=== PATIENT | male | born 1940 | race Caucasian/White ===

== ENCOUNTER 2017-07-16 07:44 | Day surgery (SDC) | payer MEDICARE ==
[~2017-07-16] VITALS: Ht 185.4 cm; Wt 102.7 kg
[~2017-07-16 07:44] MED LIST: ATOR40TA49 PO; CARD120T4 PO; CEPH500 PO; DABI150 PO; GLIM1 PO; HYDR-3580 PO; METF-324 PO; PROS5TAB2 PO; TAMS0.4C67 PO
[2017-07-16 07:58] VITALS: BP 141/65; PULSE 69; RESP 20; TEMP 97.8; O2SAT 90
[2017-07-16] MEDS ORDERED: ACET500T13 PO (08:31)
[2017-07-16] MEDS ORDERED: ROSU20 PO (08:31)
[2017-07-16] MEDS ORDERED: GLIM2TAB PO (08:31)
[2017-07-16] MEDS ORDERED: ALBI1INJ2 SQ (08:31)
[2017-07-16] MEDS ORDERED: METF1000 PO (08:31)
[2017-07-16] MEDS ORDERED: GABA100C4 PO (08:31)
[2017-07-16] MEDS ORDERED: DILT1CAP3 (08:31)
[2017-07-16] MEDS ORDERED: TAMS0.4C4 (08:31)
[2017-07-16] MEDS ORDERED: FINA5TAB2 (08:31)
[2017-07-16] MEDS ORDERED: APIX5TAB PO (08:31)
[2017-07-16] MEDS ORDERED: SODIUM CHLORIDE 2 ML FLUSH PRN IV FLUSH (08:45)
[2017-07-16] MEDS ORDERED: SODIUM CHLOR 0.9% 1000 ML IV SCH (08:45)
[2017-07-16] MEDS ORDERED: SODIUM CHLORIDE 2 ML FLUSH BID IV FLUSH SCH (09:00)
[2017-07-16] MEDS ORDERED: LIDOCAINE HCL 1% 20 ML VIAL ONE (09:37)
[2017-07-16] MEDS ORDERED: fentaNYL CITRATE 250 MCG/5 ML AMP ONE (09:51)
[2017-07-16] MEDS ORDERED: MIDAZOLAM HCL 2 MG/2 ML VIAL ONE (09:51)
--- NOTE | 2017-07-16 10:37 | PD.RAD ---
Post Procedure Progress Note Pre Procedure Diagnosis: (1) Mass of right chest wall Post Procedure Diagnosis: (1) Mass of right chest wall Procedure Date: Jul 16, 2017 Supervising Radiologist: Puneet Bray Estimated blood loss: None Anesthesia: Local, Conscious Sedation Plan of Activity Patient to Unit: ROPU Patient Condition: Good Additional Comments: 2 core biopsies taken of the right chest wall mass Full dictated report to follow See PACS Report for procedural detail/treatment Puneet Bray MD Jul 16, 2017 10:36
[2017-07-16 10:50] VITALS: BP 101/53; PULSE 70; RESP 16; TEMP 97.8; O2SAT 92
--- NOTE | 2017-07-16 11:01 | RADRPT ---
EXAM DATE/TIME: 07/16/2017 10:17 [facility] COMPARISON: No previous studies available for comparison. INDICATIONS : Right chest wall mass. SEDATION TIME: 30 minutes BIOPSY SITE: Right chest MEDICATION(S): 1.) 2 mg midazolam (Versed) IV 2.) 150 mcg fentanyl (Sublimaze) IV DEVICE(S): 1.) 18 gauge Temno core biopsy needle MEDICAL HISTORY : Congestive heart failure. Diabetes mellitus type 2. SURGICAL HISTORY : Pacemaker. ENCOUNTER: Initial ACUITY: 1 day PAIN SCORE: 0/10 LOCATION: Bilateral chest A total of two core specimen(s) were obtained and sent to the laboratory for pathologic evaluation. PROCEDURE: 1. CT guided biopsy. 2. Conscious sedation with continuous EKG and oximetry monitoring. 3. EKG and oximetry remained stable throughout the procedure. Prior to the procedure informed consent was obtained. Any appropriate prior imaging studies were rev iewed. Using automated exposure control and adjustment of the mA and/or kV according to patient size, radiat ion dose was kept as low as reasonably achievable to obtain optimal diagnostic quality images. DICOM format image data is available electronically for review and comparison. The site was prepped in a sterile fashion. Full sterile technique was used, including cap, mask, judy rile gloves and gown and a large sterile sheet. Hand hygiene and 2% chlorhexidine and/or betadine/al cohol prep was utilized per protocol for cutaneous antisepsis. The skin and subcutaneous tissues wer e infiltrated with local anesthetic solution. With CT guidance the previously identified target was localized. Biopsy was performed using the presc ribed needle as above. Adequate hemostasis was obtained with compression at the puncture site. Follow-up CT scan reveals no hemorrhage. The patient tolerated the procedure well and there were no complications. The patient was returned to the Radiology Outpatient Unit in stable condition. CONCLUSION: Uncomplicated CT guided biopsy. Puneet Bray MD on July 16, 2017 at 10:59 Board Certified Radiologist. This report was verified electronically.
[2017-07-16 11:05] VITALS: BP 95/55; PULSE 70; RESP 20; O2SAT 93
[2017-07-16 11:35] VITALS: BP 105/53; PULSE 64; RESP 18; O2SAT 96
[2017-07-16 12:05] VITALS: BP 102/55; PULSE 64; RESP 18; O2SAT 92
[2017-07-16 12:35] VITALS: BP 122/55; PULSE 70; RESP 18; O2SAT 95
== END 2017-07-16 13:00 | disposition home or self-care (01) ==
LOC: HRAD 07:44 → HRIP 07:48 → HRAD 13:00
PROVIDERS: ATTEND Internal Medicine
DX: R22.2 Localized swelling, mass and lump, trunk (principal); R07.89 Other chest pain; I50.9 Heart failure, unspecified; E11.9 Type 2 diabetes mellitus without complications; Z95.0 Presence of cardiac pacemaker
CPT/HCPCS: 20206; 77012; 88305; 99152; 99153; J2250; J3010

== ENCOUNTER 2017-07-24 08:43 | Inpatient (IN) | payer MEDICARE ==
[~2017-07-24] VITALS: Ht 185.4 cm; Wt 100.0 kg
[~2017-07-24 08:43] MED LIST changes: +ACET500T13 PO; +ALBI1INJ2 SQ; +APIX5TAB PO; +DILT1CAP3 PO; +FINA5TAB2; +GABA100C4 PO; +GLIM2TAB PO; +METF1000 PO; +ROSU20 PO; +TAMS0.4C4
[2017-07-24 08:53] VITALS: BP 120/63; PULSE 73; RESP 19; TEMP 98.1; O2SAT 95
[2017-07-24 09:09] VITALS: BP 142/69; PULSE 69; RESP 19; O2SAT 96
[2017-07-24] MEDS ORDERED: HYDR-4107 PO (09:19)
--- NOTE | 2017-07-24 09:30 | PD ---
HPI Chief Complaint: Dizziness Time Seen by Provider: 09:14 Travel History International Travel<30 days: No Contact w/Intl Traveler<30days: No Traveled to known affect area: No History of Present Illness HPI 77-year-old male complains of headache, dizziness. Patient states that the symptoms started this morning. Patient states the headache diffuse over the head. Patient states that he had transient blurred vision for short time this morning however that cleared up completely. Patient also complained of transient weakness of lower extremity for a short time, and that cleared up completely. Patient denies any neck pain. Patient denies any chest pain or shortness of breath. Patient denies abdominal pain. Patient denies any nausea vomiting diarrhea. Patient denies any fever chills. Patient denies any recent head injury. Patient has history of atrial fibrillation, on Eliquis. Patient was off Eliquis 4 days last week for a chest wall biopsy procedure. Patient also has history hypertension, diabetes, hyperlipidemia. Patient is a non- smoker. Patient status post CVA in 2013. Patient has AICD placement. PFSH Past Medical History Arthritis: No Asthma: No Atrial Fibrillation: Yes Blood Disorders: No Anxiety: No Depression: No Heart Rhythm Problems: Yes Cancer: No Cardiovascular Problems: Yes (A-FIB, CHF, pacer,) High Cholesterol: Yes Chemotherapy: No Chest Pain: No Congestive Heart Failure: Yes COPD: No Cerebrovascular Accident: Yes Diabetes: Yes (DM II) Patient Takes Glucophage: Yes Diminished Hearing: No Endocrine: Yes GERD: No Glaucoma: No Genitourinary: Yes (BPH) Headaches: No Hepatitis: No Hiatal Hernia: No Hypertension: Yes Immune Disorder: No Implanted Vascular Access Dvce: Yes Kidney Stones: No Musculoskeletal: Yes (ARTHRITIS, BACK PROBLEMS) Neurologic: Yes (CVA 2013, no residual) Psychiatric: No Reproductive: No Respiratory: No Integumentary: No Immunizations Current: Yes Migraines: No Myocardial Infarction: No Radiation Therapy: No Renal Failure: No Seizures: No Sickle Cell Disease: No Thyroid Disease: No Ulcer: No Tetanus Vaccination: Unknown Influenza Vaccination: Yes Past Surgical History Abdominal Surgery: No AICD: No Appendectomy: No Cardiac Surgery: Yes (STENT,PACEMAKER, a-fib ablation) Cholecystectomy: No Ear Surgery: No Endocrine Surgery: No Eye Surgery: Yes (R CATARACT) Genitourinary Surgery: No Gynecologic Surgery: No Joint Replacement: Yes (BILATERAL KNEE REPLACEMENTS) Oral Surgery: Yes (TONSILLECTOMY) Pacemaker: Yes (NOVEMBER 2012) Thoracic Surgery: Yes (BUILT IT UP AGAINST THE CHEST WALL 1970 r/t spontaneous pneumothorax x 3 ) Other Surgery: Yes (BILATERAL TOTAL KNEE REPLACEMENT) Social History Alcohol Use: No Tobacco Use: No Substance Use: No Allergies-Medications (Allergen,Severity, Reaction): Coded Allergies: MRI PRECAUTION (Verified Adverse Reaction, Severe, NON REVO PACEMAKER 11/20 LRS, 07/24/17) Reported Meds & Prescriptions Reported Meds & Active Scripts Active Reported Hydrocodone-Acetaminophen 5-300 Mg Tab 1 Tab PO Q12HR PRN Tanzeum 4-Pack Inj (Albiglutide) 50 Mg Pfpen 50 Mg SQ Q7D Gabapentin 100 Mg Cap 1,000 Mg PO BID APAP Extra Strength (Acetaminophen) 500 Mg Tab 500 Mg PO Q4-6H PRN Glimepiride 2 Mg Tab 2 Mg PO BIDAC Metformin (Metformin HCl) 1,000 Mg Tab 1,000 Mg PO BIDPC Tamsulosin (Tamsulosin HCl) 0.4 Mg Cap 0.4 Mg HS Finasteride 5 Mg Tab 5 Mg DAILY Do not crush. Crestor (Rosuvastatin Calcium) 20 Mg Tab 20 Mg PO DAILY Eliquis (Apixaban) 5 Mg Tab 5 Mg PO BID Diltiazem 24Hr ER (Diltiazem HCl) 180 Mg Cap.sa.24h Review of Systems General / Constitutional: No: Fever Eyes: No: Visual changes HENT: Positive: Headaches, Lightheadedness Cardiovascular: No: Chest Pain or Discomfort Respiratory: No: Shortness of Breath Gastrointestinal: No: Abdominal Pain Genitourinary: No: Dysuria Musculoskeletal: No: Pain Skin: No Rash Neurologic: No: Weakness Psychiatric: No: Depression Endocrine: No: Polydipsia Hematologic/Lymphatic: No: Easy Bruising Physical Exam Narrative GENERAL: Well-nourished, well-developed patient. SKIN: Focused skin assessment warm/dry. HEAD: Normocephalic. EYES: No scleral icterus. No injection or drainage. Pupils pinpoint bilaterally. NECK: Supple, trachea midline. No JVD or lymphadenopathy. CARDIOVASCULAR: Regular rate and rhythm without murmurs, gallops, or rubs. RESPIRATORY: Breath sounds equal bilaterally. No accessory muscle use. GASTROINTESTINAL: Abdomen soft, non-tender, nondistended. MUSCULOSKELETAL: No cyanosis, or edema. BACK: Nontender without obvious deformity. No CVA tenderness. Neurologic exam: Patient awake alert oriented 3. No obvious focal deficit. Data Data Last Documented VS Vital Signs Date Time Temp Pulse Resp B/P (MAP) Pulse Ox O2 Delivery O2 Flow Rate FiO2 07/24/17 09:11 69 19 96 Room Air 07/24/17 09:09 142/69 (93) 07/24/17 08:53 98.1 Orders Orders Electrocardiogram (07/24/17 09:23) Complete Blood Count With Diff (07/24/17 09:23) Comprehensive Metabolic Panel (07/24/17 09:23) Prothrombin Time / Inr (Pt) (07/24/17 09:23) Act Partial Throm Time (Ptt) (07/24/17 09:23) Urinalysis - C+S If Indicated (07/24/17 09:23) Thyroid Stimulating Hormone (07/24/17 09:23) Chest, Single Ap (07/24/17 09:23) Ct Brain W/O Iv Contrast(Rout) (07/24/17 09:23) Iv Access Insert/Monitor (07/24/17 09:23) Ecg Monitoring (07/24/17 09:23) Oximetry (07/24/17 09:23) Cta Brain W Iv Contrast W 3d (07/24/17 ) Cta Neck W Iv Contrast W 3d (07/24/17 ) Aspirin (Aspirin) (07/24/17 12:00) Sodium Chlor 0.9% 1000 Ml Inj (Ns 1000 M (07/24/17 12:00) Labs Laboratory Tests Test 07/24/17 09:30 White Blood Count 9.0 TH/MM3 Red Blood Count 4.63 MIL/MM3 Hemoglobin 14.1 GM/DL Hematocrit 41.7 % Mean Corpuscular Volume 90.1 FL Mean Corpuscular Hemoglobin 30.5 PG Mean Corpuscular Hemoglobin Concent 33.9 % Red Cell Distribution Width 14.2 % Platelet Count 284 TH/MM3 Mean Platelet Volume 7.0 FL Neutrophils (%) (Auto) 72.2 % Lymphocytes (%) (Auto) 15.7 % Monocytes (%) (Auto) 9.3 % Eosinophils (%) (Auto) 1.8 % Basophils (%) (Auto) 1.0 % Neutrophils # (Auto) 6.5 TH/MM3 Lymphocytes # (Auto) 1.4 TH/MM3 Monocytes # (Auto) 0.8 TH/MM3 Eosinophils # (Auto) 0.2 TH/MM3 Basophils # (Auto) 0.1 TH/MM3 CBC Comment DIFF FINAL Differential Comment Prothrombin Time 12.0 SEC Prothromb Time International Ratio 1.2 RATIO Activated Partial Thromboplast Time 30.1 SEC Blood Urea Nitrogen 20 MG/DL Creatinine 0.92 MG/DL Random Glucose 133 MG/DL Total Protein 7.5 GM/DL Albumin 3.7 GM/DL Calcium Level 9.5 MG/DL Alkaline Phosphatase 70 U/L Aspartate Amino Transf (AST/SGOT) 21 U/L Alanine Aminotransferase (ALT/SGPT) 26 U/L Total Bilirubin 0.4 MG/DL Sodium Level 136 MEQ/L Potassium Level 4.5 MEQ/L Chloride Level 101 MEQ/L Carbon Dioxide Level 28.1 MEQ/L Anion Gap 7 MEQ/L Estimat Glomerular Filtration Rate 79 ML/MIN Thyroid Stimulating Hormone 3rd Gen 1.870 uIU/ML MDM Medical Decision Making Medical Screen Exam Complete: Yes Emergency Medical Condition: Yes Interpretation(s) 11:18 AM. Last Impressions Head CT 07/24/17922 Signed Impressions: Service Date/Time: Monday, July 24, 2017 09:53 - CONCLUSION: 1. Prominent right parietal infarct with probable chronic and acute components. MRI may be warranted. 2. No midline shift or mass effect. Kennedy Galvan MD Chest X-Ray 07/24/17922 Signed Impressions: Service Date/Time: Monday, July 24, 2017 09:30 - CONCLUSION: 1. Cardiomegaly and minimal left basilar density and probable tiny pleural effusion. 2. Right lung is clear. Kennedy Galvan MD 11:20 AM. CBC within normal limits. BUN 20. INR 1.2. Differential Diagnosis Differential diagnosis including migraine headache, tension headache, cluster headache, intracranial hemorrhage, TIA, CVA Narrative Course 77-year-old male with headache and dizziness. Aspirin 325 mg p.o. given. Normal saline solution 100 cc an hour. O2 2 L nasal cannula. Head of bed at 30 . Spoke with neurologist ,Dr. Rudolph. Advise observation, aspirin, MRA of the brain and carotid. Diagnosis Primary Impression: TIA (transient ischemic attack) Qualified Codes: G45.9 - Transient cerebral ischemic attack, unspecified Additional Impression: Cephalgia Qualified Codes: R51 - Headache Admitting Information Admitting Physician Requests: Observation Ralph Luu MD Jul 24, 2017 09:30
[2017-07-24 09:50] LABS: AUTOMATED NEUTROPHIL # 6.5 TH/MM3 (1.8-7.7); BASOPHIL # 0.1 TH/MM3 (0-0.2); EOSINOPHIL # 0.2 TH/MM3 (0-0.4); EOSINOPHIL % 1.8 % (0.0-4.0); HEMATOCRIT 41.7 % (39.0-51.0); HEMOGLOBIN 14.1 GM/DL (13.0-17.0); LYMPH % 15.7 % (9.0-44.0); LYMPHOCYTE # 1.4 TH/MM3 (1.0-4.8); MEAN CELL VOLUME 90.1 FL (80.0-100.0); MEAN CORPUSCULAR HEMOGLOBIN 30.5 PG (27.0-34.0); MEAN CORPUSCULAR HGB CONC 33.9 % (32.0-36.0); MONO % 9.3 % (0.0-8.0); MONOCYTE # 0.8 TH/MM3 (0-0.9); NEUT % 72.2 % (16.0-70.0); PLATELET COUNT 284 TH/MM3 (150-450); RED BLOOD COUNT 4.63 MIL/MM3 (4.50-5.90); RED CELL DISTRIBUTION WIDTH 14.2 % (11.6-17.2)
[2017-07-24 09:58] LABS: INTERNATIONAL NORMALIZED RATIO 1.2 RATIO
--- NOTE | 2017-07-24 09:59 | RADRPT ---
EXAM DATE/TIME: 07/24/2017 09:30 [facility] COMPARISON: CHEST SINGLE AP, January 05, 2014, 11:29. INDICATIONS : Short of breath, lower extremity weakness today, shaking MEDICAL HISTORY : Diabetes mellitus type II. Congestive heart failure. SURGICAL HISTORY : Pacemaker. ENCOUNTER: Initial ACUITY: 1 day PAIN SCORE: 0/10 LOCATION: Bilateral chest FINDINGS: A single view of the chest demonstrates minimal left basilar density and tiny left pleural effusion. Diminished lung volumes. Cardiomegaly with left-sided pacemaker. Osseous structures are intact. CONCLUSION: 1. Cardiomegaly and minimal left basilar density and probable tiny pleural effusion. 2. Right lung is clear. Kennedy Galvan MD on July 24, 2017 at 9:57 Board Certified Radiologist. This report was verified electronically.
[2017-07-24 10:00] LABS: ALBUMIN 3.7 GM/DL (3.4-5.0); AST (GOT) 21 U/L (15-37); BICARBONATE 28.1 MEQ/L (21.0-32.0); BLOOD UREA NITROGEN 20 MG/DL (7-18); CALCIUM 9.5 MG/DL (8.5-10.1); CHLORIDE 101 MEQ/L (98-107); CREATININE 0.92 MG/DL (0.60-1.30); GLOMERULAR FILTRATION RATE 79 ML/MIN (>89); GLUCOSE,RANDOM 133 MG/DL (74-106); SODIUM (NA) 136 MEQ/L (136-145)
[2017-07-24 10:01] LABS: ALT (GPT) 26 U/L (12-78)
--- NOTE | 2017-07-24 10:09 | RADRPT ---
EXAM DATE/TIME: 07/24/2017 09:53 [facility] COMPARISON: CT BRAIN W/O CONTRAST, November 21, 2013, 10:29. INDICATIONS : Dizziness and cephalgia. RADIATION DOSE: 42.35 CTDIvol (mGy) MEDICAL HISTORY : Cerebrovascular disease. Hypertension. Cardiovascular disease SURGICAL HISTORY : Pacemaker. ENCOUNTER: Initial ACUITY: 1 day PAIN SCALE: 3/10 LOCATION: Bilateral cranial TECHNIQUE: Multiple contiguous axial images were obtained of the head. Using automated exposure control and adj ustment of the mA and/or kV according to patient size, radiation dose was kept as low as reasonably a chievable to obtain optimal diagnostic quality images. DICOM format image data is available electro nically for review and comparison. FINDINGS: CEREBRUM: Prominent right parietal infarct which is predominantly old although acute component cannot be exclud ed. The ventricles are normal for age. No evidence of midline shift, mass lesion, hemorrhage. No ex tra-axial fluid collections are seen. POSTERIOR FOSSA: The cerebellum and brainstem are intact. The 4th ventricle is midline. The cerebellopontine angle i s unremarkable. EXTRACRANIAL: The visualized portion of the orbits is intact. SKULL: The calvaria is intact. No evidence of skull fracture. CONCLUSION: 1. Prominent right parietal infarct with probable chronic and acute components. MRI may be warranted. 2. No midline shift or mass effect. Kennedy Galvan MD on July 24, 2017 at 10:05 Board Certified Radiologist. This report was verified electronically.
[2017-07-24 10:10] LABS: ALKALINE PHOSPHATASE 70 U/L (45-117); TOTAL BILIRUBIN ADULT 0.4 MG/DL (0.2-1.0); TOTAL PROTEIN 7.5 GM/DL (6.4-8.2)
[2017-07-24 11:30] VITALS: BP 118/67; PULSE 68; RESP 16; O2SAT 97
[2017-07-24] MEDS ORDERED: ACETAMINOPHEN 325 MG TAB PO ONE (12:00)
[2017-07-24] MEDS ORDERED: ASPIRIN 325 MG TAB PO ONE (12:00)
[2017-07-24] MEDS: SODIUM CHLOR 0.9% 1000 ML INJ 1,000 ML IV SCH ×2 (12:08→17:00)
[2017-07-24] MEDS ORDERED: ACETAMINOPHEN 325 MG TAB PO PRN (12:30)
[2017-07-24] MEDS ORDERED: ONDANSETRON HCL 4 MG/2 ML VIAL IVP PRN (12:30)
[2017-07-24] MEDS ORDERED: MAGNESIUM HYDROXIDE SUSP 30 ML CUP PO PRN (12:30)
[2017-07-24] MEDS ORDERED: NALOXONE HCL 0.4 MG/ML AMP IV PUSH PRN (12:30)
[2017-07-24] MEDS ORDERED: SODIUM CHLORIDE 0.9% FLUSH 10 ML FLUSH IV FLUSH PRN (12:30)
[2017-07-24] MEDS ORDERED: DEXTROSE 50% IN WATER 50 ML VIAL(D50) IV PUSH PRN (12:45)
[2017-07-24] MEDS ORDERED: GLUCAGON 1 MG/ML VIAL OTHER PRN (12:45)
[2017-07-24] MEDS ORDERED: ENALAPRILAT 1.25 MG/ML VIAL IV PUSH PRN (12:45)
[2017-07-24] MEDS ORDERED: IOHEXOL 350 MG/ML 10 ML VIAL (for RAD DIAG) IVCONTRAST ONE (12:49)
--- NOTE | 2017-07-24 12:49 | HHI.HP ---
HPI Service [facility] Hospitalists Primary Care Physician Samuel St MD Admission Diagnosis Transient neurological deficit Chief Complaint: Headache, LUE weakness Travel History International Travel<30 Days: No Contact w/Intl Traveler <30 Da: No Traveled to Known Affected Are: No History of Present Illness Mr. Cabrera is a 77 y/o WM with Hx of CVA in 2013, carotid stenosis, hypertension, diabetes mellitus, atrial fibrillation, and peripheral vascular disease who presented to the ED on 07/24/17 with complaints of headache and transient left sided weakness. Pt normally takes Eliquis BID for his hx of atrial fibrillation. This was held for a chest wall biopsy he had on 07/16 but was resumed after biopsy. Pt reports that this morning he developed a global headache that seemed to be worse with coughing. He also noted that he felt a little weak in his left arm and had some transient blurred vision. The weakness and blurred vision resolved on its own. He denies any associated photophobia. fever/chills, night sweats, recent head injury. Pt had a head CT in the ED which noted prominent right parietal infarct with probable chronic and acute components. Pt is being admitted for Neurology consultation and further workup. Review of Systems Constitutional: DENIES: Fever, Chills Eyes: COMPLAINS OF: Blurred vision, DENIES: Vision loss Ears, nose, mouth, throat: DENIES: Hearing loss, Nasal discharge, Hoarseness, Running Nose, Epistaxis, Sinus Pain Respiratory: COMPLAINS OF: Cough, DENIES: Shortness of breath Cardiovascular: DENIES: Chest pain, Palpitations, Lower Extremity Edema Gastrointestinal: DENIES: Abdominal pain, Constipation, Diarrhea, Nausea, Vomiting Genitourinary: DENIES: Hematuria, Dysuria Musculoskeletal: DENIES: Back pain, Neck pain Integumentary: DENIES: Rash Neurologic: COMPLAINS OF: Headache, Localized weakness, DENIES: Abnormal gait, Seizures, Speech Problems, Tremor, Poor Balance Psychiatric: DENIES: Confusion Past Family Social History Past Medical History Hx of CVA in 2013 Carotid stenosis (L>R) Hypertension Diabetes, hemoglobin A1c was 8.0 on 06/22/17 Atrial fibrillation Peripheral vascular disease, status post lower extremity revascularization procedure Summer 2012 CHF, status post permanent pacemaker Hyperlipidemia History of lower extremity DVT BPH Chronic low back pain Obesity History of left eye posterior vitreous detachment PVCs Hx of biliary strictures, status post ERCP with sphincterotomy Hx of nephrolithiasis Remote history of recurrent left pneumothorax x3 with thoracotomy and repair 2D echo (10/16/16): - Estimated EF 45-50% - Mild LA enlargement - Mild LVH - Mild aortic sclerosis - Mild mitral regurg - Mild tricuspid regurg - PA pressure 47mmHg Past Surgical History Chest wall biopsy on 07/16/17 Thoracotomy and repair ERCP with sphincterotomy Knee replacement Corneal surgery Lower extremity revascularization summer 2012 Reported Medications -Hydrocodone-Acetaminophen 5-300 Mg Tab 1 Tab PO Q12HR PRN -Tanzeum 4-Pack Inj 50 Mg SQ Q7D -Gabapentin 100 Mg Cap 1,000 Mg PO BID (?300mg-600mg po HS) -APAP Extra Strength (Acetaminophen) 500 Mg Tab 500 Mg PO Q4-6H PRN -Glimepiride 2 Mg PO BIDAC -Metformin 1,000 Mg PO BIDPC -Tamsulosin 0.4 Mg HS -Finasteride 5 Mg DAILY -Crestor 20 Mg PO DAILY -Eliquis 5 Mg PO BID -Diltiazem 24Hr ER 180 Mg PO DAILY Allergies: Coded Allergies: MRI PRECAUTION (Verified Adverse Reaction, Severe, NON REVO PACEMAKER 11/20 LRS, 07/24/17) Family History Noncontributory Social History Pt is He is retired Former smoker, patient has smoked 2 packs per day for most of his adult life No alcohol use No illicit Street drugs Physical Exam Vital Signs Vital Signs Date Time Temp Pulse Resp B/P (MAP) Pulse Ox O2 Delivery O2 Flow Rate FiO2 07/24/17 09:11 69 19 96 Room Air 07/24/17 09:09 69 19 142/69 (93) 96 Room Air 07/24/17 09:09 69 19 142/69 (93) 96 Room Air 07/24/17 08:53 98.1 73 19 120/63 (82) 95 Physical Exam GENERAL: This is a well-nourished, well-developed patient, in no apparent distress. HEENT: Atraumatic. Normocephalic. No temporal or scalp tenderness. No scleral icterus. Airway patent. NECK: Trachea midline, supple, nontender. CARDIO: Regular. RESP: CTA bilaterally. No wheezes, rales, or rhonchi. ABD: +BS, soft, non-tender, nondistended. EXT: Extremities without clubbing, cyanosis, or edema. NEURO: Awake and alert. Motor and sensory grossly within normal limits. Normal speech. Laboratory Laboratory Tests Test 07/24/17 09:30 White Blood Count 9.0 Red Blood Count 4.63 Hemoglobin 14.1 Hematocrit 41.7 Mean Corpuscular Volume 90.1 Mean Corpuscular Hemoglobin 30.5 Mean Corpuscular Hemoglobin Concent 33.9 Red Cell Distribution Width 14.2 Platelet Count 284 Mean Platelet Volume 7.0 Neutrophils (%) (Auto) 72.2 Lymphocytes (%) (Auto) 15.7 Monocytes (%) (Auto) 9.3 Eosinophils (%) (Auto) 1.8 Basophils (%) (Auto) 1.0 Neutrophils # (Auto) 6.5 Lymphocytes # (Auto) 1.4 Monocytes # (Auto) 0.8 Eosinophils # (Auto) 0.2 Basophils # (Auto) 0.1 CBC Comment DIFF FINAL Differential Comment Prothrombin Time 12.0 Prothromb Time International Ratio 1.2 Activated Partial Thromboplast Time 30.1 Blood Urea Nitrogen 20 Creatinine 0.92 Random Glucose 133 Total Protein 7.5 Albumin 3.7 Calcium Level 9.5 Alkaline Phosphatase 70 Aspartate Amino Transf (AST/SGOT) 21 Alanine Aminotransferase (ALT/SGPT) 26 Total Bilirubin 0.4 Sodium Level 136 Potassium Level 4.5 Chloride Level 101 Carbon Dioxide Level 28.1 Anion Gap 7 Estimat Glomerular Filtration Rate 79 Thyroid Stimulating Hormone 3rd Gen 1.870 Result Diagram: 07/24/1792907/24/17929 Imaging Last Impressions Head CT 07/24/17922 Signed Impressions: Service Date/Time: Monday, July 24, 2017 09:53 - CONCLUSION: 1. Prominent right parietal infarct with probable chronic and acute components. MRI may be warranted. 2. No midline shift or mass effect. Kennedy Galvan MD Chest X-Ray 07/24/17922 Signed Impressions: Service Date/Time: Monday, July 24, 2017 09:30 - CONCLUSION: 1. Cardiomegaly and minimal left basilar density and probable tiny pleural effusion. 2. Right lung is clear. Kennedy Galvan MD Caprini VTE Risk Assessment Caprini VTE Risk Assessment: Mod/High Risk (score >= 2) Caprini Risk Assessment Model Point Value = 1 Point Value = 2 Point Value = 3 Point Value = 5 Age 41-60 Minor surgery BMI > 25 kg/m2 Swollen legs Varicose veins or History of unexplained or recurrent spontaneous Oral contraceptives or hormone replacement Sepsis (< 1 month) Serious lung disease, including pneumonia (< 1 month) Abnormal pulmonary function Acute myocardial infarction Congestive heart failure (< 1 month) History of inflammatory bowel disease Medical patient at bed rest Age 61-74 Arthroscopic surgery Major open surgery (> 45 min) Laparoscopic surgery (> 45 min) Malignancy Confined to bed (> 72 hours) Immobilizing plaster cast Central venous access Age >= 75 History of VTE Family history of VTE Factor V Leiden Prothrombin [id number] Lupus anticoagulant Anticardiolipin antibodies Elevated serum homocysteine Heparin-induced thrombocytopenia Other congenital or acquired thrombophilia Stroke (< 1 month) Elective arthroplasty Hip, pelvis, or leg fracture Acute spinal cord injury (< 1 month) Prophylaxis Regimen Total Risk Factor Score Risk Level Prophylaxis Regimen 0-1 Low Early ambulation 2 Moderate Order ONE of the following: *Sequential Compression Device (SCD) *Heparin 5000 units SQ BID 3-4 Higher Order ONE of the following medications: *Heparin 5000 units SQ TID *Enoxaparin/Lovenox 40 mg SQ daily (WT < 150 kg, CrCl > 30 mL/min) *Enoxaparin/Lovenox 30 mg SQ daily (WT < 150 kg, CrCl > 10-29 mL/min) *Enoxaparin/Lovenox 30 mg SQ BID (WT < 150 kg, CrCl > 30 mL/min) AND/OR *Sequential Compression Device (SCD) 5 or more Highest Order ONE of the following medications: *Heparin 5000 units SQ TID (Preferred with Epidurals) *Enoxaparin/Lovenox 40 mg SQ daily (WT < 150 kg, CrCl > 30 mL/min) *Enoxaparin/Lovenox 30 mg SQ daily (WT < 150 kg, CrCl > 10-29 mL/min) *Enoxaparin/Lovenox 30 mg SQ BID (WT < 150 kg, CrCl > 30 mL/min) AND *Sequential Compression Device (SCD) Assessment and Plan Problem List: (1) Head ache ICD Codes: R51 - Head ache Status: Acute Plan: - Patient is a 77 y/o WM with Hx of CVA in 2013, carotid stenosis, hypertension , diabetes mellitus, atrial fibrillation, and peripheral vascular disease who presented to the ED on 07/24/17 with complaints of headache and transient left sided weakness. - Pt reports that this morning he developed a global headache that seemed to be worse with coughing. He also noted that he felt a little weak in his left arm and had some transient blurred vision. The weakness and blurred vision resolved on its own. - Head CT in the ED which noted prominent right parietal infarct with probable chronic and acute components. - Neurology consulted. - [facility] Day to possible be a cough induced MEDRANO - CTA brain and Carotids are ordered - Check b12, tsh, folate - 2D echo - FLP (2) TIA (transient ischemic attack) ICD Codes: G45.9 - TIA (transient ischemic attack) Status: Acute Plan: - See above - Neurology consulted - Recommending adding aspirin 81 mg daily to Plavix - ekg monitor (3) Afib ICD Codes: I48.91 - Afib Status: Chronic Plan: - Home meds continued - ekg monitor (4) DM (diabetes mellitus), type 2, uncontrolled ICD Codes: E11.65 - DM (diabetes mellitus), type 2, uncontrolled Status: Chronic Plan: - Hemoglobin A1c 7.8 - NovoLog SSI - Accu checks (5) Cardiomyopathy ICD Codes: I42.9 - Cardiomyopathy, unspecified Status: Chronic (6) Wide QRS ventricular tachycardia ICD Codes: I47.2 - Ventricular tachycardia Status: Acute (7) History of cardiac pacemaker ICD Codes: Z95.0 - Presence of cardiac pacemaker Status: Chronic Assessment and Plan Patient examined. Assessment and plan formulated with Sulma Marcus PA-C. I agree with the above. Physician Certification 2 Midnight Certification Type: Admission for Inpatient Services Order for Inpatient Services The services are ordered in accordance with Medicare regulations or non- Medicare payer requirements, as applicable. In the case of services not specified as inpatient-only, they are appropriately provided as inpatient services in accordance with the 2-midnight benchmark. Estimated LOS (days): 3 3 days is the estimated time the patient will need to remain in the hospital, assuming treatment plan goals are met and no additional complications. Post-Hospital Plan: Not yet determined Problem Qualifiers (1) TIA (transient ischemic attack): Qualified Codes: G45.9 - Transient cerebral ischemic attack, unspecified Sulma Marcus Jul 24, 2017 12:49 Magdy Mauricio DO Jul 30, 2017 11:04
--- NOTE | 2017-07-24 13:17 | RADRPT ---
EXAM DATE/TIME: 07/24/2017 12:32 [facility] COMPARISON: No previous studies available for comparison. INDICATIONS : Dizziness and headache since this morning. IV CONTRAST: 73 cc Omnipaque 350 (iohexol) IV ; Cumulative dose for multiple exams. RADIATION DOSE: 27.94 CTDIvol (mGy) ; Combined studies - Thorax/Abdomen/Pelvis MEDICAL HISTORY : Cardiovascular disease. Cerebrovascular disease. Hypertension.Diabetes SURGICAL HISTORY : None. ENCOUNTER: Initial ACUITY: 1 day PAIN SCALE: 5/10 LOCATION: cranial TECHNIQUE: Volumetric scanning was performed using a multi-row detector CT scanner. The data was post processed with a variety of visualization algorithms including full volume maximum intensity projection, multi -planar sliding thin slab reformation, curved planar reformation, and surface rendering techniques. Using automated exposure control and adjustment of the mA and/or kV according to patient size, radiat ion dose was kept as low as reasonably achievable to obtain optimal diagnostic quality images. DICO M format image data is available electronically for review and comparison. FINDINGS: There is excellent visualization of the major intracranial arteries out to the second-order branch ve ssels. There is no evidence for aneurysm, vessel truncation or stenosis, and no evidence for vascula r malformation. CONCLUSION: Normal examination. Wilman Boudreaux MD on July 24, 2017 at 13:15 Board Certified Radiologist. This report was verified electronically.
--- NOTE | 2017-07-24 13:20 | RADRPT ---
EXAM DATE/TIME: 07/24/2017 12:32 [facility] COMPARISON: No previous studies available for comparison. INDICATIONS : Dizziness and headache since this morning. IV CONTRAST: 73 cc Omnipaque 350 (iohexol) IV ; Cumulative dose for multiple exams. RADIATION DOSE: 27.94 CTDIvol (mGy) ; Combined studies MEDICAL HISTORY : Cardiovascular disease. Cerebrovascular disease. Hypertension.Diabetes. SURGICAL HISTORY : None. ENCOUNTER: Initial ACUITY: 1 day PAIN SCALE: 5/10 LOCATION: neck Elevated flow velocities and ICA/CCA ratios have been found to correlate with increased degrees of vessel stenosis, calculated as percentage of diameter relative to a normal segment of distal ICA/CCA. TECHNIQUE: Volumetric scanning was performed using a multirow detector CT scanner. The data was post processed with a variety of visualization algorithms including full-volume maximum intensity projection, multip lanar sliding thin-slab reformation, curved-planar reformation, and surface-rendering techniques. Us ing automated exposure control and adjustment of the mA and/or kV according to patient size, radiatio n dose was kept as low as reasonably achievable to obtain optimal diagnostic quality images. DICOM f ormat image data is available electronically for review and comparison. FINDINGS: AORTIC ARCH: There is a three-vessel origin of the great vessels from the aorta. No evidence of ostial narrowing. RIGHT CAROTID: There is mild eccentric calcific plaque involving the right internal carotid artery origin with minim al associated luminal narrowing estimated at perhaps 20%. Beyond this proximal disease, the vessel is normal in appearance and widely patent to the skull base. LEFT CAROTID: There is moderate eccentric soft and calcific plaquing at the carotid bulb and left ICA origin with a pproximately 40% stenotic narrowing. VERTEBRALS: The vertebral arteries are patent bilaterally, left side dominant.. No stenotic lesions are seen. CONCLUSION: Slight bilateral carotid bifurcation stenosis, worse on the left than the right. No significant flow- limiting stenosis Wilman Boudreaux MD on July 24, 2017 at 13:16 Board Certified Radiologist. This report was verified electronically.
[2017-07-24 14:27] LABS: FREE T4 1.11 NG/DL (0.76-1.46)
[2017-07-24 14:30] LABS: FOLATE GREATER THAN 20.0 NG/ML (3.1-17.5)
--- NOTE | 2017-07-24 15:05 | PD.CONS ---
History of Present Illness Service Neurology Consult Requested By er Reason for Consult tia Primary Care Physician Samuel St MD History of Present Illness 77 y/o m presents to er for evaluation of headache and transient left sided weakness. on eliquis bid. has been on it since last sunday, after biopsy. today felt alittle weak in his left arm, was having a headache worse when he coughs. no photo/phonophobia. no fever, night sweats or chills. no blood production, no clear fluid drainage. feels better at present. no swan, no focal weakness. has been under some stress thinking about the results of his recent biopsy. ct brain shows old rt o-p stroke no ich. glucose 133. cbc nml. given ivf and aspirin in er. 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 Past Surgical History Chest wall biopsy on 07/16/17 Thoracotomy and repair ERCP with sphincterotomy Knee replacement Corneal surgery Lower extremity revascularization summer 2012 Allergies: Coded Allergies: MRI PRECAUTION (Verified Adverse Reaction, Severe, NON REVO PACEMAKER 11/20 LRS, 07/24/17) Family History Noncontributory Social History Pt is quit tob use No alcohol use No illicit Street drugs Review of Systems All other ROS: ROS reviewed as documented in chart Past Family Social History Allergies: Coded Allergies: MRI PRECAUTION (Verified Adverse Reaction, Severe, NON REVO PACEMAKER 11/20 LRS, 07/24/17) Active Ordered Medications Current Medications Medications (Trade) Dose Ordered Sig/Conchita Route Start Time Stop Time Status Last Admin Sodium Chloride 1,000 ml @ 100 mls/hr Q10H IV 07/24/17 12:00 07/24/17 12:08 (NS Flush) 2 ml UNSCH PRN IV FLUSH 07/24/17 12:30 (NS Flush) 2 ml BID IV FLUSH 07/24/17 21:00 (Tylenol) 650 mg Q4H PRN PO 07/24/17 12:30 (Zofran Inj) 4 mg Q6H PRN IVP 07/24/17 12:30 (Narcan Inj) 0.4 mg UNSCH PRN IV PUSH 07/24/17 12:30 (Milk Of Magnesia Liq) 30 ml Q12H PRN PO 07/24/17 12:30 (Vasotec Inj) 1.25 mg Q4H PRN IV PUSH 07/24/17 12:45 (Aspirin) 325 mg DAILY PO 07/25/17 09:00 (NovoLOG SUPPLEMENTAL SCALE) 1 ACHS SLIDING SCALE SQ 07/24/17 17:00 (D50w (Vial) Inj) 50 ml UNSCH PRN IV PUSH 07/24/17 12:45 (Glucagon Inj) 1 mg UNSCH PRN OTHER 07/24/17 12:45 (Eliquis) 5 mg BID PO 07/24/17 21:00 (Glucophage) 1,000 mg BIDPC PO 07/26/17 18:00 (Flomax) 0.4 mg HS PO 07/24/17 21:00 (Lipitor) 40 mg DAILY PO 07/24/17 12:45 (Cardizem Cd) 180 mg DAILY PO 07/25/17 09:00 Exam I&O / VS Vital Signs Date Time Temp Pulse Resp B/P (MAP) Pulse Ox O2 Delivery O2 Flow Rate FiO2 07/24/17 11:30 68 16 118/67 (84) 97 Room Air 07/24/17 09:11 69 19 96 Room Air 07/24/17 09:09 69 19 142/69 (93) 96 Room Air 07/24/17 09:09 69 19 142/69 (93) 96 Room Air 07/24/17 08:53 98.1 73 19 120/63 (82) 95 General: Alert and Oriented, No acute distress Eye: PERRL, EOMI, Other Respiratory: Lungs CTA Cardiology: Normal rate Musculoskeletal: ROM Neurologic: Alert, Oriented, Normal sensory, Normal motor, No focal defects, CN II-XII intact, Gag reflex normal, Normal DTR's Psychiatric: Cooperative, Appropriate mood & affect Exam Comments ox 3, no aphasia, eomi, vff grossly full, minimal reduced left nlf, smile sym, no drift, 5/5 all 4 ext, no clonus, planterflexor Review/Management Diagnosis/Plan: (1) Cephalgia ICD Codes: R51 - Headache Status: Acute Plan: cough induced swan. no mass found on ct brain vitals/exam stable has been under some stress. possible tension/migraine headache. although feels his left arm was alittle weak which would point towards tia b12, tsh, folate nml. cta brain/carotids no significant occlusive disease. 20-40 % stenosis recs ivf check lipids tele/echo would be a little reluctant to change oac at present. add aspirin 81mg po for now d/c planning in am follow exam (2) TIA (transient ischemic attack) ICD Codes: G45.9 - TIA (transient ischemic attack) Status: Acute (3) Chronic ischemic right MCA stroke ICD Codes: I69.30 - Unspecified sequelae of cerebral infarction Status: Chronic (4) Afib ICD Codes: I48.91 - Afib Status: Chronic (5) HTN (hypertension) ICD Codes: I10 - HTN (hypertension) Status: Chronic (6) DM (diabetes mellitus), type 2, uncontrolled ICD Codes: E11.65 - DM (diabetes mellitus), type 2, uncontrolled Status: Chronic Problem Qualifiers (1) Cephalgia: Qualified Codes: R51 - Headache (2) TIA (transient ischemic attack): Qualified Codes: G45.9 - Transient cerebral ischemic attack, unspecified Jean Rudolph MD Jul 24, 2017 15:05
[2017-07-24 16:28] LABS: HEMOGLOBIN A1C 7.8 % (4.3-6.0)
[2017-07-24 16:59] VITALS: BP 136/72; PULSE 73; RESP 20; TEMP 97.9; O2SAT 96
[2017-07-24] MEDS: INSULIN ASPART SUPPLEMENTAL SCALE SQ SCH ×2 (17:00→23:27)
[2017-07-24] MEDS: ATORVASTATIN 40 MG TAB PO SCH (17:01)
[2017-07-24 20:35] VITALS: BP 136/78; PULSE 76; RESP 17; TEMP 98; O2SAT 95
[2017-07-24] MEDS: APIXABAN 5 MG TABLET PO SCH (21:19)
[2017-07-24] MEDS: SODIUM CHLORIDE 0.9% FLUSH 10 ML FLUSH IV FLUSH SCH (21:19)
[2017-07-24] MEDS: TAMSULOSIN HCL 0.4 MG CAP PO SCH (21:19)
--- NOTE | 2017-07-24 21:55 | EKG ---
Date Performed: 07/24/2017 Time Performed: 09:17:17 PTAGE: 77 years EKG: ELECTRONIC VENTRICULAR PACEMAKER ABNORMAL RHYTHM ECG PREVIOUS TRACING : 01/06/2014 05.15 Compared to prior tracing, paced rhythm now present DOCTOR: Zbigniew George Interpretating Date/Time 07/24/2017 21:54:08
[2017-07-24 23:30] VITALS: BP 121/58; PULSE 69; RESP 18; TEMP 98.3; O2SAT 95
[2017-07-25] VITALS (8 sets, daily range): BP systolic 120–154; BP diastolic 62–89; PULSE 69–115; RESP 17–20; TEMP 97.7–97.9; O2SAT 93–95
[2017-07-25] MEDS: INSULIN ASPART SUPPLEMENTAL SCALE SQ SCH ×4 (08:40→20:29)
[2017-07-25] MEDS: SODIUM CHLORIDE 0.9% FLUSH 10 ML FLUSH IV FLUSH SCH ×2 (08:43→20:28)
[2017-07-25] MEDS: SODIUM CHLOR 0.9% 1000 ML INJ 1,000 ML IV SCH ×2 (08:43→17:13)
[2017-07-25] MEDS: ATORVASTATIN 40 MG TAB PO SCH (08:44)
[2017-07-25] MEDS: ASPIRIN 81 MG CHEW TAB PO SCH (08:44)
[2017-07-25] MEDS: APIXABAN 5 MG TABLET PO SCH ×2 (08:45→20:28)
[2017-07-25] MEDS ORDERED: ASPIRIN 325 MG TAB PO SCH (09:00)
[2017-07-25] MEDS ORDERED: DILTIAZEM-CD 180 MG CAP ER PO SCH (09:00)
--- NOTE | 2017-07-25 09:25 | HHI.PR ---
Review/Management Diagnosis/Plan: (1) Cephalgia ICD Codes: R51 - Headache Status: Acute Plan: cough induced swan. no mass found on ct brain vitals/exam stable has been under some stress. possible tension/migraine headache. although feels his left arm was alittle weak which would point towards tia b12, tsh, folate nml. cta brain/carotids no significant occlusive disease. 20-40 % stenosis recs neuro stable; doing well lipids pending echo-pending eliquis + aspirin 81mg d/c planning today from neuro and f/u with us outpatient in 2-3 weeks (2) TIA (transient ischemic attack) ICD Codes: G45.9 - TIA (transient ischemic attack) Status: Acute (3) Chronic ischemic right MCA stroke ICD Codes: I69.30 - Unspecified sequelae of cerebral infarction Status: Chronic (4) Afib ICD Codes: I48.91 - Afib Status: Chronic (5) HTN (hypertension) ICD Codes: I10 - HTN (hypertension) Status: Chronic (6) DM (diabetes mellitus), type 2, uncontrolled ICD Codes: E11.65 - DM (diabetes mellitus), type 2, uncontrolled Status: Chronic Subjective Subjective Comments No acute events reported no dizziness; " can i go home?" No headache No chest pain No dyspnea Active Medications Current Medications Medications (Trade) Dose Ordered Sig/Conchita Route Start Time Stop Time Status Last Admin Sodium Chloride 1,000 ml @ 100 mls/hr Q10H IV 07/24/17 12:00 07/25/17 08:43 (NS Flush) 2 ml UNSCH PRN IV FLUSH 07/24/17 12:30 (NS Flush) 2 ml BID IV FLUSH 07/24/17 21:00 07/24/17 21:19 (Tylenol) 650 mg Q4H PRN PO 07/24/17 12:30 (Zofran Inj) 4 mg Q6H PRN IVP 07/24/17 12:30 (Narcan Inj) 0.4 mg UNSCH PRN IV PUSH 07/24/17 12:30 (Milk Of Magnesia Liq) 30 ml Q12H PRN PO 07/24/17 12:30 (Vasotec Inj) 1.25 mg Q4H PRN IV PUSH 07/24/17 12:45 (NovoLOG SUPPLEMENTAL SCALE) 1 ACHS SLIDING SCALE SQ 07/24/17 17:00 07/24/17 23:27 (D50w (Vial) Inj) 50 ml UNSCH PRN IV PUSH 07/24/17 12:45 (Glucagon Inj) 1 mg UNSCH PRN OTHER 07/24/17 12:45 (Eliquis) 5 mg BID PO 07/24/17 21:00 07/25/17 08:45 (Glucophage) 1,000 mg BIDPC PO 07/26/17 18:00 (Flomax) 0.4 mg HS PO 07/24/17 21:00 07/24/17 21:19 (Lipitor) 40 mg DAILY PO 07/24/17 12:45 07/25/17 08:44 (Cardizem Cd) 180 mg DAILY PO 07/25/17 09:00 07/25/17 08:44 (Aspirin Chew) 81 mg DAILY PO 07/25/17 09:00 07/25/17 08:44 Allergies Allergies Coded Allergies MRI PRECAUTION (Verified Adverse Reaction, Severe, NON REVO PACEMAKER 11/20/13 LRS, 07/24/17) Review of Systems All other ROS: ROS reviewed as documented in chart Exam I&O / VS 07/25/17 07/25/17 07/26/17 15:00 23:00 07:00 # Voids 1 # Bowel Movements 1 Vital Signs Date Time Temp Pulse Resp B/P (MAP) Pulse Ox O2 Delivery O2 Flow Rate FiO2 07/25/17 08:22 97.9 69 20 137/80 (99) 93 07/25/17 05:28 97.8 70 17 120/63 (82) 94 07/25/17 00:37 69 07/24/17 23:30 98.3 69 18 121/58 (79) 95 07/24/17 20:35 98.0 76 17 136/78 (97) 95 07/24/17 16:59 97.9 73 20 136/72 (93) 96 07/24/17 16:23 07/24/17 11:30 68 16 118/67 (84) 97 Room Air General: Alert and Oriented, No acute distress Eye: PERRL, EOMI, Other Respiratory: Lungs CTA Cardiology: Normal rate Musculoskeletal: ROM Neurologic: Alert, Oriented, Normal sensory, Normal motor, No focal defects, CN II-XII intact, Gag reflex normal, Normal DTR's Psychiatric: Cooperative, Appropriate mood & affect Exam Comments ox 3, no aphasia, eomi, vff grossly full, no evangelical tenderness, neck supple, smile sym, no drift, 5/5 all 4 ext, no clonus, planterflexor Objective Micro and Labs Laboratory Tests Test 07/24/17 09:30 07/24/17 13:20 07/25/17 08:45 White Blood Count 9.0 Red Blood Count 4.63 Hemoglobin 14.1 Hematocrit 41.7 Mean Corpuscular Volume 90.1 Mean Corpuscular Hemoglobin 30.5 Mean Corpuscular Hemoglobin Concent 33.9 Red Cell Distribution Width 14.2 Platelet Count 284 Mean Platelet Volume 7.0 Neutrophils (%) (Auto) 72.2 Lymphocytes (%) (Auto) 15.7 Monocytes (%) (Auto) 9.3 Eosinophils (%) (Auto) 1.8 Basophils (%) (Auto) 1.0 Neutrophils # (Auto) 6.5 Lymphocytes # (Auto) 1.4 Monocytes # (Auto) 0.8 Eosinophils # (Auto) 0.2 Basophils # (Auto) 0.1 CBC Comment DIFF FINAL Differential Comment Prothrombin Time 12.0 Prothromb Time International Ratio 1.2 Activated Partial Thromboplast Time 30.1 Blood Urea Nitrogen 20 Creatinine 0.92 Random Glucose 133 Total Protein 7.5 Albumin 3.7 Calcium Level 9.5 Alkaline Phosphatase 70 Aspartate Amino Transf (AST/SGOT) 21 Alanine Aminotransferase (ALT/SGPT) 26 Total Bilirubin 0.4 Sodium Level 136 Potassium Level 4.5 Chloride Level 101 Carbon Dioxide Level 28.1 Anion Gap 7 Estimat Glomerular Filtration Rate 79 Thyroid Stimulating Hormone 3rd Gen 1.870 Hemoglobin A1c 7.8 Ammonia 33 Vitamin B12 Level 473 Folate GREATER THAN 20.0 Free Thyroxine 1.11 Problem Qualifiers (1) Cephalgia: Qualified Codes: R51 - Headache (2) TIA (transient ischemic attack): Qualified Codes: G45.9 - Transient cerebral ischemic attack, unspecified Jean Rudolph MD Jul 25, 2017 09:25
[2017-07-25 09:26] LABS: AUTOMATED NEUTROPHIL # 7.1 TH/MM3 (1.8-7.7); BASOPHIL # 0.1 TH/MM3 (0-0.2); EOSINOPHIL # 0.1 TH/MM3 (0-0.4); EOSINOPHIL % 1.1 % (0.0-4.0); HEMATOCRIT 40.8 % (39.0-51.0); HEMOGLOBIN 13.8 GM/DL (13.0-17.0); LYMPH % 11.7 % (9.0-44.0); LYMPHOCYTE # 1.1 TH/MM3 (1.0-4.8); MEAN CELL VOLUME 90.3 FL (80.0-100.0); MEAN CORPUSCULAR HEMOGLOBIN 30.6 PG (27.0-34.0); MEAN CORPUSCULAR HGB CONC 33.9 % (32.0-36.0); MEAN PLATELET VOLUME 7.2 FL (7.0-11.0); MONO % 8.2 % (0.0-8.0); MONOCYTE # 0.8 TH/MM3 (0-0.9); PLATELET COUNT 290 TH/MM3 (150-450); RED BLOOD COUNT 4.52 MIL/MM3 (4.50-5.90); WHITE BLOOD COUNT 9.1 TH/MM3 (4.0-11.0)
[2017-07-25 09:53] LABS: BICARBONATE 28.3 MEQ/L (21.0-32.0); CALCIUM 9.3 MG/DL (8.5-10.1); CREATININE 0.79 MG/DL (0.60-1.30)
[2017-07-25 09:57] LABS: CHOLESTEROL/ HDL RATIO 2.73 RATIO; HDL CHOLESTEROL 43.2 MG/DL (40.0-60.0)
[2017-07-25] MEDS ORDERED: ASPI81TA23 PO (10:16)
--- NOTE | 2017-07-25 12:33 | HHI.DCPOC ---
Discharge Care Plan Diagnosis: (1) Cephalgia (2) TIA (transient ischemic attack) (3) Afib (4) DM (diabetes mellitus), type 2, uncontrolled (5) HTN (hypertension) Goals to Promote Your Health * To prevent worsening of your condition and complications * To maintain your health at the optimal level Directions to Meet Your Goals Take your medications as prescribed Follow your dietary instruction Follow activity as directed Keep your appointments as scheduled Take your immunizations and boosters as scheduled If your symptoms worsen call your PCP, if no PCP go to Urgent Care Center or Emergency Room Smoking is Dangerous to Your Health. Avoid second hand smoke Call the 24-hour hour crisis hotline for domestic abuse at Chasidy Jim Jul 25, 2017 12:33 Magdy Mauricio DO Jul 30, 2017 11:06
--- NOTE | 2017-07-25 12:38 | HHI.DS ---
Discharge Summary Admission Date Jul 24, 2017 at 12:41 Discharge Date: Jul 26, 2017 Admitting Diagnosis Transient neurological deficit (1) TIA (transient ischemic attack) Diagnosis: Principal ICD Codes: G45.9 - TIA (transient ischemic attack) Status: Acute (2) HTN (hypertension) Diagnosis: Secondary ICD Codes: I10 - HTN (hypertension) Status: Chronic (3) Afib Diagnosis: Secondary ICD Codes: I48.91 - Afib Status: Chronic (4) DM (diabetes mellitus), type 2, uncontrolled Diagnosis: Secondary ICD Codes: E11.65 - DM (diabetes mellitus), type 2, uncontrolled Status: Chronic (5) Chronic ischemic right MCA stroke Diagnosis: Secondary ICD Codes: I69.30 - Unspecified sequelae of cerebral infarction Status: Chronic Consultants Dr. Rudolph, neurology Dr. Rodriguez, Cardiology Procedures none Brief History Mr. Cabrera is a 77 y/o WM with Hx of CVA in 2013, carotid stenosis, hypertension, diabetes mellitus, atrial fibrillation, and peripheral vascular disease who presented to the ED on 07/24/17 with complaints of headache and transient left sided weakness. Pt normally takes Eliquis BID for his hx of atrial fibrillation. This was held for a chest wall biopsy he had on 07/16 but was resumed after biopsy. Pt reports that this morning he developed a global headache that seemed to be worse with coughing. He also noted that he felt a little weak in his left arm and had some transient blurred vision. The weakness and blurred vision resolved on its own. He denies any associated photophobia. fever/chills, night sweats, recent head injury. Pt had a head CT in the ED which noted prominent right parietal infarct with probable chronic and acute components. Pt is being admitted for Neurology consultation and further workup. CBC/BMP: 07/25/17 0845 07/25/17 0845 Significant Findings Laboratory Tests Test 07/24/17 09:30 07/24/17 13:20 07/25/17 08:45 Neutrophils (%) (Auto) 72.2 % (16.0-70.0) 78.0 % (16.0-70.0) Monocytes (%) (Auto) 9.3 % (0.0-8.0) 8.2 % (0.0-8.0) Prothrombin Time 12.0 SEC (9.8-11.6) Blood Urea Nitrogen 20 MG/DL (7-18) Random Glucose 133 MG/DL (74-106) 126 MG/DL (74-106) Estimat Glomerular Filtration Rate 79 ML/MIN (>89) Hemoglobin A1c 7.8 % (4.3-6.0) Ammonia 33 MCMOL/L (11-32) Folate GREATER THAN 20.0 NG/ML Cholesterol Level 118 MG/DL (120-200) Imaging Last Impressions Head CT 07/24/17922 Signed Impressions: Service Date/Time: Monday, July 24, 2017 09:53 - CONCLUSION: 1. Prominent right parietal infarct with probable chronic and acute components. MRI may be warranted. 2. No midline shift or mass effect. Kennedy Galvan MD Chest X-Ray 07/24/17922 Signed Impressions: Service Date/Time: Monday, July 24, 2017 09:30 - CONCLUSION: 1. Cardiomegaly and minimal left basilar density and probable tiny pleural effusion. 2. Right lung is clear. Kennedy Galvan MD Neck CTA 07/24/17 Signed Impressions: Service Date/Time: Monday, July 24, 2017 12:32 - CONCLUSION: Slight bilateral carotid bifurcation stenosis, worse on the left than the right. No significant flow-limiting stenosis Wilman Boudreaux MD Head CTA 07/24/17 Signed Impressions: Service Date/Time: Monday, July 24, 2017 12:32 - CONCLUSION: Normal examination. Wilman Boudreaux MD PE at Discharge GENERAL: This is a well-nourished, well-developed patient, in no apparent distress. HEENT: Atraumatic. Normocephalic. No temporal or scalp tenderness. No scleral icterus. Airway patent. NECK: Trachea midline, supple, nontender. CARDIO: Regular. RESP: CTA bilaterally. No wheezes, rales, or rhonchi. ABD: +BS, soft, non-tender, nondistended. EXT: Extremities without clubbing, cyanosis, or edema. NEURO: Awake and alert. Motor and sensory grossly within normal limits. Normal speech. Hospital Course Cephalgia- resolved cough induced swan. no mass found on ct brain vitals/exam stable has been under some stress. possible tension/migraine headache. although feels his left arm was a little weak which would point towards tia b12, tsh, folate nml. cta brain/carotids no significant occlusive disease. 20-40 % stenosis lipid profile reviewed: LDL 50 echo-pending TIA (transient ischemic attack) Acute Consult neurology, cleared patient for DC. Recommending adding aspirin 81 mg daily to Plavix F/U with neurology in 2-3 weeks Plan to DC after echocardiogram completed. Patient to follow up with PCP for results PT evaluated patient recommending home with NO PT Telemetry reviewed a 15 beat run of possible NSVT noted 07/25 1506 Consult placed to cardiology, Patient evaluated by Dr. Rodriguez, pacemaker interrogated and Per cardiology: Pacemaker electrograms show overall infrequent episodes which are no longer than 8 seconds, and most consistent with aberrantly conducted atrial fib. Patient asymptomatic with the episodes. Rec replace diltiazem with metoprolol. OK to discharge home today. K 4.3, mag 1.4 supplemented, TSH 1.87, free T4 1.11 Chronic ischemic right MCA stroke Chronic Afib Chronic HTN (hypertension) Chronic DM (diabetes mellitus), type 2, uncontrolled Chronic Pt Condition on Discharge: Stable Discharge Disposition: Discharge Home Discharge Instructions DIET: Follow Instructions for: Heart Healthy Diet, Diabetic Diet Activities you can perform: Regular-No Restrictions Follow up Referrals: Cardiology - 2 Weeks with Florentin Tellez MD Neurology - 2 Weeks with Jean Rudolph MD PCP Follow-up - [address] New Medications: Aspirin DR (Aspirin EC) 81 Mg Tabdr 81 MG PO DAILY for Blood Clot Prevention, #30 TAB 0 Refills Metoprolol Tartrate (Metoprolol Tartrate) 25 Mg Tab 25 MG PO Q12HR for heart, #60 TAB 0 Refills Continued Medications: Acetaminophen (APAP Extra Strength) 500 Mg Tab 500 MG PO Q4-6H PRN for PAIN SCALE 6 TO 10, TAB Albiglutide 4-Pack Inj (Tanzeum 4-Pack Inj) 50 Mg Pfpen 50 MG SQ Q7D, #4 PEN Apixaban (Eliquis) 5 Mg Tab 5 MG PO BID for Blood Clot Prevention, #60 TAB 0 Refills Finasteride (Finasteride) 5 Mg Tab 5 MG DAILY for Manage Prostate Problems, #30 TAB 0 Refills Do not crush. Gabapentin (Gabapentin) 100 Mg Cap 1000 MG PO BID, #60 CAP 0 Refills Glimepiride (Glimepiride) 2 Mg Tab 2 MG PO BIDAC for Blood Sugar Management, #60 TAB 0 Refills Hydrocodone-Acetaminophen (Hydrocodone-Acetaminophen) 5-300 Mg Tab 1 TAB PO Q12HR PRN for PAIN, TAB 0 Refills Metformin (Metformin) 1,000 Mg Tab 1000 MG PO BIDPC for Blood Sugar Management, #60 TAB 0 Refills Rosuvastatin (Crestor) 20 Mg Tab 20 MG PO DAILY for Cholesterol Management, #30 TAB 0 Refills Tamsulosin (Tamsulosin) 0.4 Mg Cap 0.4 MG HS for Manage Prostate Problems, #30 CAP 0 Refills Discontinued Medications: Diltiazem HCl (Diltiazem 24Hr ER) 180 Mg Cap.sa.24h 180 MG PO DAILY for HTN, #30 0 Refills Additional Information Patient examined. Assessment and plan formulated with Chasidy Jim PA-C. I agree with the above. Chasidy Jim Jul 25, 2017 12:38 Magdy Mauricio DO Jul 30, 2017 11:06
--- NOTE | 2017-07-25 15:31 | HHI.PR ---
Subjective Remarks Patient reports feeling well, offers no specific complaints On telemetry a 15 beat run of possible NSVT noted 07/25 1506 Objective Vitals Vital Signs Date Time Temp Pulse Resp B/P (MAP) Pulse Ox O2 Delivery O2 Flow Rate FiO2 07/25/17 12:05 97.7 115 20 154/89 (110) 95 07/25/17 08:22 97.9 69 20 137/80 (99) 93 07/25/17 05:28 97.8 70 17 120/63 (82) 94 07/25/17 00:37 69 07/24/17 23:30 98.3 69 18 121/58 (79) 95 07/24/17 20:35 98.0 76 17 136/78 (97) 95 07/24/17 16:59 97.9 73 20 136/72 (93) 96 07/24/17 16:23 07/25/17 07/25/17 07/26/17 14:59 22:59 06:59 # Voids 1 # Bowel Movements 1 Result Diagram: 07/25/17 0845 07/25/17 0845 Other Results Laboratory Tests Test 07/24/17 09:30 07/24/17 13:20 07/25/17 08:45 White Blood Count 9.0 TH/MM3 9.1 TH/MM3 Red Blood Count 4.63 MIL/MM3 4.52 MIL/MM3 Hemoglobin 14.1 GM/DL 13.8 GM/DL Hematocrit 41.7 % 40.8 % Mean Corpuscular Volume 90.1 FL 90.3 FL Mean Corpuscular Hemoglobin 30.5 PG 30.6 PG Mean Corpuscular Hemoglobin Concent 33.9 % 33.9 % Red Cell Distribution Width 14.2 % 14.0 % Platelet Count 284 TH/MM3 290 TH/MM3 Mean Platelet Volume 7.0 FL 7.2 FL Neutrophils (%) (Auto) 72.2 % 78.0 % Lymphocytes (%) (Auto) 15.7 % 11.7 % Monocytes (%) (Auto) 9.3 % 8.2 % Eosinophils (%) (Auto) 1.8 % 1.1 % Basophils (%) (Auto) 1.0 % 1.0 % Neutrophils # (Auto) 6.5 TH/MM3 7.1 TH/MM3 Lymphocytes # (Auto) 1.4 TH/MM3 1.1 TH/MM3 Monocytes # (Auto) 0.8 TH/MM3 0.8 TH/MM3 Eosinophils # (Auto) 0.2 TH/MM3 0.1 TH/MM3 Basophils # (Auto) 0.1 TH/MM3 0.1 TH/MM3 CBC Comment DIFF FINAL DIFF FINAL Differential Comment Prothrombin Time 12.0 SEC Prothromb Time International Ratio 1.2 RATIO Activated Partial Thromboplast Time 30.1 SEC Blood Urea Nitrogen 20 MG/DL 15 MG/DL Creatinine 0.92 MG/DL 0.79 MG/DL Random Glucose 133 MG/DL 126 MG/DL Total Protein 7.5 GM/DL Albumin 3.7 GM/DL Calcium Level 9.5 MG/DL 9.3 MG/DL Alkaline Phosphatase 70 U/L Aspartate Amino Transf (AST/SGOT) 21 U/L Alanine Aminotransferase (ALT/SGPT) 26 U/L Total Bilirubin 0.4 MG/DL Sodium Level 136 MEQ/L 137 MEQ/L Potassium Level 4.5 MEQ/L 4.3 MEQ/L Chloride Level 101 MEQ/L 102 MEQ/L Carbon Dioxide Level 28.1 MEQ/L 28.3 MEQ/L Anion Gap 7 MEQ/L 7 MEQ/L Estimat Glomerular Filtration Rate 79 ML/MIN 95 ML/MIN Thyroid Stimulating Hormone 3rd Gen 1.870 uIU/ML Hemoglobin A1c 7.8 % Ammonia 33 MCMOL/L Vitamin B12 Level 473 PG/ML Folate GREATER THAN 20.0 NG/ML Free Thyroxine 1.11 NG/DL Rapid Plasma Reagin NON-REACTIVE Triglycerides Level 126 MG/DL Cholesterol Level 118 MG/DL LDL Cholesterol 50 MG/DL HDL Cholesterol 43.2 MG/DL Cholesterol/HDL Ratio 2.73 RATIO Imaging Last Impressions Head CT 07/24/17922 Signed Impressions: Service Date/Time: Monday, July 24, 2017 09:53 - CONCLUSION: 1. Prominent right parietal infarct with probable chronic and acute components. MRI may be warranted. 2. No midline shift or mass effect. Kennedy Galvan MD Chest X-Ray 07/24/17922 Signed Impressions: Service Date/Time: Monday, July 24, 2017 09:30 - CONCLUSION: 1. Cardiomegaly and minimal left basilar density and probable tiny pleural effusion. 2. Right lung is clear. Kennedy Galvan MD Objective Remarks GENERAL: This is a well-nourished, well-developed patient, in no apparent distress. HEENT: Atraumatic. Normocephalic. No temporal or scalp tenderness. No scleral icterus. Airway patent. NECK: Trachea midline, supple, nontender. CARDIO: Regular. RESP: CTA bilaterally. No wheezes, rales, or rhonchi. ABD: +BS, soft, non-tender, nondistended. EXT: Extremities without clubbing, cyanosis, or edema. NEURO: Awake and alert. Motor and sensory grossly within normal limits. Normal speech. Procedures none A/P Problem List: (1) TIA (transient ischemic attack) ICD Codes: G45.9 - TIA (transient ischemic attack) Status: Acute Plan: Cephalgia- resolved cough induced swan. no mass found on ct brain vitals/exam stable has been under some stress. possible tension/migraine headache. although feels his left arm was alittle weak which would point towards tia b12, tsh, folate nml. cta brain/carotids no significant occlusive disease. 20-40 % stenosis lipid profile reviewed: LDL 50 echo-completed results pending TIA (transient ischemic attack) Acute Consult neurology, cleared patient for DC. Recommending adding aspirin 81 mg daily to Plavix F/U with neurology in 2-3 weeks Plan to DC after echocardiogram completed. Patient to follow up with PCP for results PT evaluated patient recommending home with NO PT Telemetry reviewed a 15 beat run of possible NSVT noted 07/25 1506 Consult placed to cardiology, await recommendation K 4.3, mag requested, TSH 1.87, free T4 1.11 NPO after midnight Chronic ischemic right MCA stroke Chronic Afib Chronic HTN (hypertension) Chronic DM (diabetes mellitus), type 2, uncontrolled Chronic hemoglobin A1c 7.8 (2) HTN (hypertension) ICD Codes: I10 - HTN (hypertension) Status: Chronic (3) Afib ICD Codes: I48.91 - Afib Status: Chronic (4) DM (diabetes mellitus), type 2, uncontrolled ICD Codes: E11.65 - DM (diabetes mellitus), type 2, uncontrolled Status: Chronic (5) Chronic ischemic right MCA stroke ICD Codes: I69.30 - Unspecified sequelae of cerebral infarction Status: Chronic Assessment and Plan Patient examined. Assessment and plan formulated with Chasidy Jim PA-C. I agree with the above. Problem Qualifiers (1) TIA (transient ischemic attack): Qualified Codes: G45.9 - Transient cerebral ischemic attack, unspecified Chasidy Jim Jul 25, 2017 15:31 Magdy Mauricio DO Jul 30, 2017 11:05
--- NOTE | 2017-07-25 16:37 | ECHRPT ---
Indication: CVA/TIA CONCLUSIONS Normal left ventricular size. The left atrial size is mildly dilated. Calcification of the anterior mitral valve leaflet. Koxdb-[id number] mitral valve regurgitation. Aortic valve sclerosis is present. There is trace tricuspid valve regurgitation. Normal left ventricular size. Mild concentric left ventricular hypertrophy. The left ventricular systolic function is severely reduced with an estimated ejection fraction in th e range of 30-35%. The left atrial size is mildly dilated. No atrial level shunt is demonstrated by color flow Doppler interrogation. Calcification of the anterior mitral valve leaflet. Nyxcz-ik-jsrq mitral valve regurgitation. Aortic valve sclerosis is present. There is trace tricuspid valve regurgitation. BP: / HR: Rhythm: Sinus MEASUREMENTS (Male / Female) Normal Values Technical Quality:Fair 2D ECHO LV Diastolic Diameter PLAX 4.9 cm 4.2 - 5.9 / 3.9 - 5.3 cm LV Systolic Diameter PLAX 4.3 cm IVS Diastolic Thickness 1.3 cm 0.6 - 1.0 / 0.6 - 0.9 cm LVPW Diastolic Thickness 1.3 cm 0.6 - 1.0 / 0.6 - 0.9 cm LV Relative Wall Thickness 0.5 RV Internal Dim ED PLAX 3.4 cm LVOT Diameter 2.8 cm Aortic Root Diameter 3.8 cm LA Systolic Diameter LX 3.4 cm 3.0 - 4.0 / 2.7 - 3.8 cm DOPPLER Mitral E Point Velocity 106.0 cm/s FINDINGS LEFT VENTRICLE Normal left ventricular size. Mild concentric left ventricular hypertrophy. The left ventricular systolic function is severely reduced with an estimated ejection fraction in th e range of 30-35%. RIGHT VENTRICLE Normal right ventricular size and systolic function. LEFT ATRIUM The left atrial size is mildly dilated. RIGHT ATRIUM The right atrial size is normal. ATRIAL SEPTUM No atrial level shunt is demonstrated by color flow Doppler interrogation. AORTA The aortic root and proximal ascending aorta are not well visualized. MITRAL VALVE Calcification of the anterior mitral valve leaflet. Hrzpb-[id number] mitral valve regurgitation. AORTIC VALVE Aortic valve sclerosis is present. TRICUSPID VALVE There is trace tricuspid valve regurgitation. Rio Hickman MD, FACC, FSCAI (Electronically Signed) Final Date:25 July 2017 16:37
--- NOTE | 2017-07-25 18:33 | MB ---
cc: Cayden Rodriguez MD, Joshua A MD DATE OF CONSULT: 07/25/2017 REASON FOR CONSULTATION: Nonsustained wide complex tachycardia. HISTORY OF PRESENT ILLNESS: The patient is a 77-year-old white male, followed in our office by Dr. Florentin Tellez, with a history of chronic atrial fibrillation with history of AV node ablation for uncontrolled heart rates, history of CVA 2013, diabetes, hypertension, biventricular pacemaker, deep venous thrombosis, who presented to the hospital with complaints of acute neurological symptoms. Yesterday, he states he was reaching for some pills on the table, and the pills were actually much farther away than what he was seeing. At that time, he also had a frontal headache which is unusual for him. He also had mild transient bilateral visual blurriness. As he was concerned he was having a stroke, he came to the Emergency Department. On monitoring here in the hospital, he has demonstrated an episode of wide complex tachycardia. The patient denies palpitations, syncope, near syncope, chest pain, shortness of breath, pedal edema. The patient has a known history of possible nonsustained ventricular tachycardia (versus aberrantly conducted atrial fibrillation) seen on previous pacemaker checks including 2012 at which time a nuclear stress test showed no evidence for ischemia and his ejection fraction was normal. PAST MEDICAL HISTORY: 1. Chronic atrial fibrillation. 2. CVA 11/2013. 3. Diabetes. 4. Hyperlipidemia. 5. Hypertension. 6. [employer] biventricular pacemaker implant 2013. 7. History of left lower extremity deep venous thrombosis 10/2012. 8. History of possible nonsustained ventricular tachycardia as noted above. MEDICATIONS: His cardiac medications at home are diltiazem ER 180 mg daily, apixaban 5 mg b.i.d., and Crestor 20 mg at bedtime. ALLERGIES: NO KNOWN DRUG ALLERGIES. FAMILY HISTORY: Noncontributory. SOCIAL HISTORY: The patient quit smoking and drinking alcohol 8 years ago. REVIEW OF SYSTEMS: As in the history of present illness, otherwise negative or noncontributory. He also denies abdominal pain, melena, dyspepsia, bright red blood per rectum, recent flu symptoms, fever, wheezing. PHYSICAL EXAMINATION: VITAL SIGNS: Blood pressure 146/70 with a pulse of 70, respirations 20. GENERAL: He is well developed, well nourished white male in no acute distress. NECK: Jugular venous pressure is normal. Carotid pulses are 2+ bilaterally and without bruits. CHEST: Examination reveals diminished breath sounds diffusely. CARDIAC: He has a regular rhythm and rate with a grade II/ systolic ejection murmur heard best at the base of the heart. The S2 heart sound is normal. No gallop is audible. ABDOMEN: He has a soft, nontender abdomen. Bowel sounds are present. There is no definite hepatosplenomegaly. EXTREMITIES: Examination reveals no clubbing, cyanosis or edema. EKG shows a ventricular paced rhythm with underlying atrial fibrillation. LABORATORY DATA: Includes normal CBC, potassium 4.3, BUN 15, creatinine 0.79, magnesium 1.4. Total cholesterol 118, LDL 50, HDL 43, triglycerides 126. INR 1.2. IMAGING STUDIES: Chest x-ray shows minimal left basilar density. IMPRESSION: Episode of nonsustained wide complex tachycardia in this 77-year-old white male with a history of chronic atrial fibrillation, status post atrioventricular node ablation for heart rate control, history of cerebrovascular accident, diabetes, hypertension, biventricular pacemaker, and deep venous thrombosis. I suspect the episode was aberrantly conducted atrial fibrillation, although it is difficult to completely exclude ventricular tachycardia. The episode does appear to begin with a long-short RR interval. The tachyarrhythmia is also irregularly irregular. Of note, his echo reportedly shows ejection fraction with 30-35% today. I would disagree with the ejection fraction estimation. It appears closer to 50%, which is similar to his echo findings last year. Overall, there is no evidence for acute coronary syndrome or congestive heart failure. RECOMMENDATIONS: 1. We will have the [employer] pacemaker administrative representative interrogate his pacemaker this evening. Electrograms may give a better idea of whether the tachycardia was atrial fibrillation or ventricular tachycardia, although I believe his pacemaker is currently in a VVI mode. 2. I would favor changing his diltiazem to a beta horacio. We will change it to metoprolol 25 mg b.i.d. MD KRISTIE Mccabe/DREW , 05:09 PM , 06:31 PM SH[facility]
[2017-07-25] MEDS: METOPROLOL TARTRATE 25 MG TAB PO SCH (20:28)
[2017-07-25] MEDS: TAMSULOSIN HCL 0.4 MG CAP PO SCH (20:28)
[2017-07-26] VITALS: BP 122/73; PULSE 71; RESP 18; TEMP 98.1; O2SAT 93
[2017-07-26] MEDS: SODIUM CHLOR 0.9% 1000 ML INJ 1,000 ML IV SCH (02:56)
[2017-07-26 04:00] VITALS: BP 142/65; PULSE 69; PULSE 71; RESP 18; TEMP 97.7; O2SAT 94
--- NOTE | 2017-07-26 07:22 | PD.CARD.PN ---
Subjective Subjective Remarks No CP, dyspnea, palpitations, dizziness, syncope. Objective Medications Item Value Date Time Metoprolol 25 mg 07/25/17 2100 Tartrate Q12HR/PO 07/25/172027 (Lopressor) Aspirin 81 mg 07/25/17 0900 (Aspirin Chew) DAILY/PO 07/25/17 0844 Apixaban 5 mg 07/24/17 2100 (Eliquis) BID/PO 07/25/172027 Atorvastatin 40 mg 07/24/17 1245 Calcium DAILY/PO 07/25/17 08 (Lipitor) Current Medications Medications (Trade) Dose Ordered Sig/Conchita Route Start Time Stop Time Status Last Admin Sodium Chloride 1,000 ml @ 100 mls/hr Q10H IV 07/24/17 12:00 07/25/17 08:43 (NS Flush) 2 ml UNSCH PRN IV FLUSH 07/24/17 12:30 (NS Flush) 2 ml BID IV FLUSH 07/24/17 21:00 07/25/17 20:28 (Tylenol) 650 mg Q4H PRN PO 07/24/17 12:30 (Zofran Inj) 4 mg Q6H PRN IVP 07/24/17 12:30 (Narcan Inj) 0.4 mg UNSCH PRN IV PUSH 07/24/17 12:30 (Milk Of Magnesia Liq) 30 ml Q12H PRN PO 07/24/17 12:30 (Vasotec Inj) 1.25 mg Q4H PRN IV PUSH 07/24/17 12:45 (NovoLOG SUPPLEMENTAL SCALE) 1 ACHS SLIDING SCALE SQ 07/24/17 17:00 07/25/17 20:29 (D50w (Vial) Inj) 50 ml UNSCH PRN IV PUSH 07/24/17 12:45 (Glucagon Inj) 1 mg UNSCH PRN OTHER 07/24/17 12:45 (Eliquis) 5 mg BID PO 07/24/17 21:00 07/25/17 20:28 (Glucophage) 1,000 mg BIDPC PO 07/26/17 18:00 (Flomax) 0.4 mg HS PO 07/24/17 21:00 07/25/17 20:28 (Lipitor) 40 mg DAILY PO 07/24/17 12:45 07/25/17 08:44 (Aspirin Chew) 81 mg DAILY PO 07/25/17 09:00 07/25/17 08:44 (Lopressor) 25 mg Q12HR PO 07/25/17 21:00 07/25/17 20:28 Vital Signs / I&O Vital Signs Date Time Temp Pulse Resp B/P (MAP) Pulse Ox O2 Delivery O2 Flow Rate FiO2 07/26/17 04:00 71 07/26/17 04:00 97.7 69 18 142/65 (90) 94 07/26/17 00:00 98.1 71 18 122/73 (89) 93 07/25/17 22:36 70 07/25/17 20:00 97.9 69 18 134/62 (86) 95 07/25/17 16:40 97.8 70 20 146/70 (95) 95 07/25/17 12:05 97.7 115 20 154/89 (110) 95 07/25/17 08:22 97.9 69 20 137/80 (99) 93 I/O 07/25/17 07/25/17 07/25/17 07/26/17 07/26/17 07/26/17 07:00 15:00 23:00 07:00 15:00 23:00 Intake Total 240 ml 480 ml Output Total 450 ml Balance -210 ml 480 ml Intake Oral 240 ml 480 ml Output Urine Total 450 ml # Voids 1 4 6 3 # Bowel Movements 2 1 0 Physical Exam GENERAL: Well developed, well nourished. No acute distress. HEENT: Jugular venous pressure is normal. CHEST: Lungs clear to auscultation bilaterally. Unlabored respiratory effort. CARDIAC: Regular rate and rhythm without S3, S4. II/ BABATUNDE base with normal S2. ABDOMEN: Soft, nontender, no hepatosplenomegaly. Bowel sounds present. EXTREMITIES: No clubbing, cyanosis, or edema. Laboratory Laboratory Tests Test 07/25/17 08:45 White Blood Count 9.1 TH/MM3 Red Blood Count 4.52 MIL/MM3 Hemoglobin 13.8 GM/DL Hematocrit 40.8 % Mean Corpuscular Volume 90.3 FL Mean Corpuscular Hemoglobin 30.6 PG Mean Corpuscular Hemoglobin Concent 33.9 % Red Cell Distribution Width 14.0 % Platelet Count 290 TH/MM3 Mean Platelet Volume 7.2 FL Neutrophils (%) (Auto) 78.0 % Lymphocytes (%) (Auto) 11.7 % Monocytes (%) (Auto) 8.2 % Eosinophils (%) (Auto) 1.1 % Basophils (%) (Auto) 1.0 % Neutrophils # (Auto) 7.1 TH/MM3 Lymphocytes # (Auto) 1.1 TH/MM3 Monocytes # (Auto) 0.8 TH/MM3 Eosinophils # (Auto) 0.1 TH/MM3 Basophils # (Auto) 0.1 TH/MM3 CBC Comment DIFF FINAL Differential Comment Blood Urea Nitrogen 15 MG/DL Creatinine 0.79 MG/DL Random Glucose 126 MG/DL Calcium Level 9.3 MG/DL Sodium Level 137 MEQ/L Potassium Level 4.3 MEQ/L Chloride Level 102 MEQ/L Carbon Dioxide Level 28.3 MEQ/L Anion Gap 7 MEQ/L Estimat Glomerular Filtration Rate 95 ML/MIN Magnesium Level 1.4 MG/DL Triglycerides Level 126 MG/DL Cholesterol Level 118 MG/DL LDL Cholesterol 50 MG/DL HDL Cholesterol 43.2 MG/DL Cholesterol/HDL Ratio 2.73 RATIO Assessment and Plan Problem List: (1) Wide QRS ventricular tachycardia ICD Codes: I47.2 - Ventricular tachycardia Status: Acute Plan: Stable overnight. Pacemaker electrograms show overall infrequent episodes which are no longer than 8 seconds, and most consistent with aberrantly conducted atrial fib. Patient asymptomatic with the episodes. Rec replace diltiazem with metoprolol. OK to discharge home today. (2) Chronic atrial fibrillation ICD Codes: I48.2 - Chronic atrial fibrillation Status: Chronic Plan: Chronic, stable atrial fib. Continue anticoagulation therapy. (3) History of cardiac pacemaker ICD Codes: Z95.0 - Presence of cardiac pacemaker Status: Chronic Plan: Pacer interrogation last night shows normal pacer function. (4) Cardiomyopathy ICD Codes: I42.9 - Cardiomyopathy, unspecified Status: Chronic Plan: As noted, the reported EF on this admission's echo of 30-35% appears inaccurate. The EF appears closer to 50%. Code Status full code Discussed Condition With patient Cayden Rodriguez MD Jul 26, 2017 07:22
[2017-07-26 08:00] VITALS: BP 134/69; PULSE 69; PULSE 81; RESP 16; TEMP 97.5; O2SAT 95
[2017-07-26] MEDS: INSULIN ASPART SUPPLEMENTAL SCALE SQ SCH (08:00)
[2017-07-26] MEDS ORDERED: METO25TA3 PO (08:14)
[2017-07-26] MEDS ORDERED: MAGNESIUM OXIDE 400 MG TAB PO ONE (09:00)
[2017-07-26] MEDS: SODIUM CHLORIDE 0.9% FLUSH 10 ML FLUSH IV FLUSH SCH (09:00)
[2017-07-26] MEDS: METOPROLOL TARTRATE 25 MG TAB PO SCH (09:48)
[2017-07-26] MEDS: ATORVASTATIN 40 MG TAB PO SCH (09:48)
[2017-07-26] MEDS: APIXABAN 5 MG TABLET PO SCH (09:49)
[2017-07-26] MEDS: ASPIRIN 81 MG CHEW TAB PO SCH (09:49)
[2017-07-26 12:00] VITALS: BP 129/67; PULSE 71; RESP 16; TEMP 97.4; O2SAT 94
[2017-07-26] MEDS ORDERED: metFORMIN HCL 500 MG TAB PO SCH (18:00)
--- NOTE | 2017-07-27 18:21 | HM ---
Date Performed: 07/24/2017 Time Performed: 19:42:00 HOOKUP DATE: 07/24/17 07:42:00 PM Tue ANALYSIS START TIME: 07/24/2017 7:47:00 PM ANALYSIS END TIME: 07/25/2017 7:50:59 PM PATIENT AGE: 77 PATIENT HEIGHT PATIENT WEIGHT DRUG LIST PATIENT DIAGNOSIS TEST NARRATIVE: The patient's average heart rate was 75 BPM. Heart rates greater than 120 B PM were noted 1% of the time. No episodes of bradycardia were noted. No pauses exceeding 2.0 sec onds were noted. 2083 ventricular ectopics, which represented 2% of the total beat count, were no nancy. The highest ventricular ectopic frequency occurred from 10:00 AM to 11:00 AM Wed. During this time 185 VE(s) occurred. Ventricular ectopics were observed as 5 isolated beat(s), as 12 couplet( s) and as 3 run(s). Some of the ventricular beats occurred in bigeminal cycles. No supraventricu lar ectopics were noted. No episodes of ST depression (defined as -1.0 mm or more) were noted in channel 1. No episodes of ST depression (defined as -1.0 mm or more) were noted in channel 2. No ep isodes of ST depression (defined as -1.0 mm or more) were noted in channel 3. TEST INTERPRETATION: The patient was paced throughout the study. Portions do look like there was underyling atrial fibrillation. Clinical correlation and/or pace-maker interrogation suggested. Ther e was 2 runs of ventricular tachycardia that were 15 and 16 beats at approximately 170 bpm. They were both in the middle of the night at 01:15 and 06:57. No diary entries of any cardiac complaints were noted. Again, clinical correlation. pacemaker interpretation requested. Consider evaluation for sleep apnea and/or ischemia. Signed by : Kendal Ambriz
== END 2017-07-26 12:38 | disposition home or self-care (01) | DRG 69 ==
LOC: NEPC 08:43 → NEDA 12:41 → N05A 16:27
PROVIDERS: ADMIT Hospitalist; ATTEND Hospitalist
DX: G45.9 Transient cerebral ischemic attack, unspecified (principal); I47.2 Ventricular tachycardia; I42.9 Cardiomyopathy, unspecified; I11.0 Hypertensive heart disease with heart failure; I50.9 Heart failure, unspecified; E11.51 Type 2 diabetes mellitus with diabetic peripheral angiopathy without gangrene; E11.65 Type 2 diabetes mellitus with hyperglycemia; E78.5 Hyperlipidemia, unspecified; I48.2 Chronic atrial fibrillation; N40.0 Benign prostatic hyperplasia without lower urinary tract symptoms; M54.5 Low back pain; G89.29 Other chronic pain; I65.23 Occlusion and stenosis of bilateral carotid arteries; I08.3 Combined rheumatic disorders of mitral, aortic and tricuspid valves; G44.209 Tension-type headache, unspecified, not intractable; Z79.01 Long term (current) use of anticoagulants; Z79.84 Long term (current) use of oral hypoglycemic drugs; Z86.718 Personal history of other venous thrombosis and embolism; Z86.73 Personal history of transient ischemic attack (TIA), and cerebral infarction without residual deficits; Z87.891 Personal history of nicotine dependence; Z95.0 Presence of cardiac pacemaker; Z96.653 Presence of artificial knee joint, bilateral
CPT/HCPCS: 70450; 70496; 70498; 71045; 80048; 80053; 80061; 82140; 82607; 82746; 82948; 83036; 83735; 84439; 84443; 85025; 85610; 85730; 86592; 93005; 93225; 93226; 93306; 99285; J1815; J7030; Q9967

== ENCOUNTER 2018-01-08 16:35 | Inpatient (IN) ==
[2018-01-08] MEDS ORDERED: Piperacil/Tazo 3.375 GM Premix 50 ML IV.SIG ONE (17:24)
--- NOTE | 2018-01-08 17:31 | ED ---
HPI General Chief complaint: Skin/Abscess/Foreign Body Stated complaint: dr felipe/leg pain Time Seen by Provider: 01/08/18 17:15 Source: patient Mode of arrival: ambulatory Limitations: no limitations History of Present Illness HPI narrative: Patient is a 77-year-old male with history of diabetes who was sent to the emergency room for admission to the hospital by Dr. Rubi. Patient reports that one month ago, he suffered a scrape on his left foot. Patient reports that the prescription into a blister, patient reports that it then turned into a big infection. He was seen by Dr. Rubi today and had extraction of this infection - he was sent to the ER for admission to the hospital. Dr. Rubi request ct of foot with and without contrast, consult to podiatry, CBC, BMP, ESR, CRP, x-ray of left foot. Related Data Home Medications Medication Instructions Recorded Confirmed apixaban [Eliquis] 5 mg PO BID 01/08/18 01/08/18 aspirin 81 mg PO DAILY 01/08/18 01/08/18 finasteride 5 mg PO HS 01/08/18 01/08/18 furosemide [Lasix] 20 mg PO DAILY 01/08/18 01/08/18 gabapentin 600 mg PO QPM 01/08/18 01/08/18 glimepiride 2 mg PO BID 01/08/18 01/08/18 metformin 1,000 mg PO BID 01/08/18 01/08/18 metoprolol tartrate 25 mg PO BID 01/08/18 01/08/18 rosuvastatin [Crestor] 20 mg PO QPM 01/08/18 01/08/18 tamsulosin 0.4 mg PO HS 01/08/18 01/08/18 Allergies Allergy/AdvReac Type Severity Reaction Status Date / Time MRI PRECAUTION AdvReac Severe NON REVO Uncoded 07/24/17 08:53 PACEMAKER 11/20/13 LRS Review of Systems ROS: all other systems reviewed are negative [facility] Medical History Medical History A-fib (Acute) Bone cancer (Acute) Diabetes (Acute) Pacemaker (Acute) Wound abscess (Acute) Social History Social History Second Hand Smoke Exposure: No Smoking Status: Never smoker How Often Do You Have a Drink Containing Alcohol: Never Exam Narrative Exam Narrative: GENERAL: NAD SKIN: Focused skin assessment warm/dry. HEAD: Atraumatic. Normocephalic. EYES: Pupils equal and round. No scleral icterus. No injection or drainage. ENT: No nasal bleeding or discharge. Mucous membranes pink and moist. NECK: Trachea midline. No JVD. CARDIOVASCULAR: Regular rate and rhythm. No murmur appreciated. RESPIRATORY: No accessory muscle use. Clear to auscultation. Breath sounds equal bilaterally. GASTROINTESTINAL: Abdomen soft, non-tender, nondistended. Hepatic and splenic margins not palpable. MUSCULOSKELETAL: No obvious deformities. No clubbing. No cyanosis. No edema. Patient with a 3cm x 3cm to left foot - there is no drainage but there is surrounding cellulitis NEUROLOGICAL: Awake and alert. No obvious cranial nerve deficits. Motor grossly within normal limits. Normal speech. PSYCHIATRIC: Appropriate mood and affect; insight and judgment normal. Course Initial Documented Vital Signs Temperature 96 F L 01/08/18 16:40 Pulse Rate 71 01/08/18 16:40 Respiratory Rate 20 01/08/18 16:40 Blood Pressure 129/75 01/08/18 16:40 Pulse Oximetry 94 L 01/08/18 16:40 Last Documented Vital Signs Temperature 96 F L 01/08/18 16:40 Pulse Rate 71 01/08/18 16:40 Respiratory Rate 20 01/08/18 16:40 Blood Pressure 129/75 01/08/18 16:40 Pulse Oximetry 94 L 01/08/18 16:40 Medical Decision Making [facility] Narrative Medical decision making narrative: patient has been given vanco as well as zosyn tetanus will be updated plan to admit to [facility] case reviewed with Dr. Mae who accepts pt to his service under Dr. Mauricio Medical Screen Exam Complete: Yes Emergency Medical Condition: Yes Differential Diagnosis Differential Diagnosis: foot infection, cellulitis Medical Records Medical records reviewed: Yes I reviewed the patient's medical records. Lab Data Lab results reviewed: Yes I reviewed the patient's lab results. Result diagrams: 01/08/18 17:36 01/08/18 17:36 Lab Results 01/08/18 01/08/18 01/08/18 Range/Units 17:26 17:36 17:36 WBC 10.9 (4.0-11.0) th/mm3 RBC 3.64 L (4.50-5.90) mil/mm3 Hgb 9.9 L (13.0-17.0) gm/dL Hct 30.9 L (39.0-51.0) % MCV 85.0 (80.0-100.0) fL MCH 27.2 (27.0-34.0) pg MCHC 32.0 (32.0-36.0) % RDW 15.8 (11.6-17.2) % Plt Count 629 H (150-450) th/mm3 MPV 6.5 L (7.0-11.0) fL Neut % (Auto) 80.0 H (16.0-70.0) % Lymph % (Auto) 8.1 L (9.0-44.0) % [place] % (Auto) 9.5 H (0.0-8.0) % Eos % (Auto) 1.3 (0.0-4.0) % Baso % (Auto) 1.1 (0.0-2.0) % Neut # (Auto) 8.7 H (1.8-7.7) th/mm3 Lymph # (Auto) 0.9 L (1.0-4.8) th/mm3 [place] # (Auto) 1.0 H (0.0-0.9) th/mm3 Eos # (Auto) 0.1 (0.0-0.4) th/mm3 Baso # (Auto) 0.1 (0.0-0.2) th/mm3 WBC Differential . Differential Comment Auto diff final PT (9.8-11.6) sec INR Ratio APTT (24.3-30.1) sec Sodium (136-145) meq/L Potassium (3.5-5.1) meq/L Chloride (98-107) meq/L Carbon Dioxide (21.0-32.0) meq/L Anion Gap (5-15) meq/L BUN (7-18) mg/dL Creatinine (0.60-1.30) mg/dL Estimated GFR (>89) mL/min Random Glucose (74-106) mg/dL Lactic Acid 2.7 H (0.4-2.0) mmol/L Calcium (8.5-10.1) mg/dL Total Bilirubin (0.2-1.0) mg/dL AST (15-37) U/L ALT (12-78) U/L Alkaline Phosphatase (45-117) U/L C-Reactive Protein 8.00 H (0.00-0.30) mg/dL Total Protein (6.4-8.2) g/dL Albumin (3.4-5.0) g/dL 01/08/18 01/08/18 Range/Units 17:36 17:40 WBC (4.0-11.0) th/mm3 RBC (4.50-5.90) mil/mm3 Hgb (13.0-17.0) gm/dL Hct (39.0-51.0) % MCV (80.0-100.0) fL MCH (27.0-34.0) pg MCHC (32.0-36.0) % RDW (11.6-17.2) % Plt Count (150-450) th/mm3 MPV (7.0-11.0) fL Neut % (Auto) (16.0-70.0) % Lymph % (Auto) (9.0-44.0) % [place] % (Auto) (0.0-8.0) % Eos % (Auto) (0.0-4.0) % Baso % (Auto) (0.0-2.0) % Neut # (Auto) (1.8-7.7) th/mm3 Lymph # (Auto) (1.0-4.8) th/mm3 [place] # (Auto) (0.0-0.9) th/mm3 Eos # (Auto) (0.0-0.4) th/mm3 Baso # (Auto) (0.0-0.2) th/mm3 WBC Differential Differential Comment PT 13.3 H (9.8-11.6) sec INR 1.3 Ratio APTT 28.2 (24.3-30.1) sec Sodium 138 (136-145) meq/L Potassium 5.5 H (3.5-5.1) meq/L Chloride 104 (98-107) meq/L Carbon Dioxide 25.6 (21.0-32.0) meq/L Anion Gap 8 (5-15) meq/L BUN 25 H (7-18) mg/dL Creatinine 0.88 (0.60-1.30) mg/dL Estimated GFR 84 L (>89) mL/min Random Glucose 125 H (74-106) mg/dL Lactic Acid (0.4-2.0) mmol/L Calcium 8.8 (8.5-10.1) mg/dL Total Bilirubin 0.2 (0.2-1.0) mg/dL AST 72 H (15-37) U/L ALT 46 (12-78) U/L Alkaline Phosphatase 153 H (45-117) U/L C-Reactive Protein (0.00-0.30) mg/dL Total Protein 7.7 (6.4-8.2) g/dL Albumin 2.1 L (3.4-5.0) g/dL Imaging Data Attestation: I personally reviewed and interpreted this imaging study as follows : Radiologist's impression: Foot X-Ray 01/08/18 17:51 CONCLUSION: Soft tissue swelling and apparent ulceration or gas over the dorsum of the midfoot in the region of the metatarsals with no underlying bony abnormality. There is no radiopaque foreign body. Discharge Plan Discharge Disposition Patient Disposition: 30 Still Patient Discharge Condition Condition: Stable Discharge Details Diagnosis: Diabetic foot infection Physicians Team ED Provider: Sulma Kelley Other Providers: Salma Hdz Rxs /Orders / Referrals /Forms Prescriptions: No Action aspirin 81 mg Tablet,Delayed Release (Dr/Ec) 81 mg PO DAILY RF: 0 glimepiride 2 mg Tablet 2 mg PO BID RF: 0 tamsulosin 0.4 mg Capsule,Extended Release 24hr 0.4 mg PO HS RF: 0 metformin 1,000 mg Tablet 1,000 mg PO BID RF: 0 gabapentin 300 mg Capsule 600 mg PO QPM RF: 0 furosemide [Lasix] 20 mg Tablet 20 mg PO DAILY RF: 0 finasteride 5 mg Tablet 5 mg PO HS RF: 0 rosuvastatin [Crestor] 20 mg Tablet 20 mg PO QPM RF: 0 metoprolol tartrate 25 mg Tablet 25 mg PO BID RF: 0 apixaban [Eliquis] 5 mg Tablet 5 mg PO BID RF: 0 Status ED Status: With Doctor
[2018-01-08] MEDS ORDERED: Tetanus/Diphtheria Toxoid Adult Vaccine Inj 0.5 ML Vial IM ONE (17:57)
[2018-01-08 17:58] LABS: Baso # (Auto) 0.1 th/mm3 (0.0-0.2); Baso % (Auto) 1.1 % (0.0-2.0); Eos # (Auto) 0.1 th/mm3 (0.0-0.4); Eos % (Auto) 1.3 % (0.0-4.0); Hematocrit 30.9 % (39.0-51.0); Hemoglobin 9.9 gm/dL (13.0-17.0); Lymph # (Auto) 0.9 th/mm3 (1.0-4.8); Lymph % (Auto) 8.1 % (9.0-44.0); Mean Corpuscular Hemoglobin 27.2 pg (27.0-34.0); Mean Platelet Volume 6.5 fL (7.0-11.0); Mono % (Auto) 9.5 % (0.0-8.0); Neut # (Auto) 8.7 th/mm3 (1.8-7.7); Platelet Count 629 th/mm3 (150-450); Red Blood Count 3.64 mil/mm3 (4.50-5.90); Red Cell Distribution Width 15.8 % (11.6-17.2); White Blood Count 10.9 th/mm3 (4.0-11.0)
[2018-01-08] MEDS ORDERED: Vancomycin Inj 1,000 MG in Sodium Chlor 0.9% Inj 250 ML IV.SIG ONE (18:00)
[2018-01-08] MEDS ORDERED: Vancomycin Inj 1 GM/200 ML PIGGYBACK IV.SIG SCH (18:00)
[2018-01-08 18:10] LABS: Activated Partial Thrombo Time 28.2 sec (24.3-30.1); INR 1.3 Ratio; Prothrombin Time 13.3 sec (9.8-11.6)
[2018-01-08 18:18] LABS: Alanine Aminotransferase 46 U/L (12-78); Albumin 2.1 g/dL (3.4-5.0); Anion Gap 8 meq/L (5-15); Aspartate Aminotransferase 72 U/L (15-37); Blood Urea Nitrogen 25 mg/dL (7-18); Calcium 8.8 mg/dL (8.5-10.1); Carbon Dioxide 25.6 meq/L (21.0-32.0); Chloride 104 meq/L (98-107); Glomerular Filtration Rate 84 mL/min (>89); Glucose,Random 125 mg/dL (74-106); Sodium 138 meq/L (136-145)
[2018-01-08 18:20] LABS: Alkaline Phosphatase 153 U/L (45-117); Total Protein 7.7 g/dL (6.4-8.2)
--- NOTE | 2018-01-08 18:22 | XR ---
EXAM DATE: 01/08/2018 6:11 PM EDT AGE/SEX: 77 years / Male INDICATIONS: Pain and inflammatory change in the left foot. CLINICAL DATA: This is the patient's initial encounter. Patient reports that signs and symptoms have been present for 1 month and indicates a pain score of 2/10. MEDICAL/SURGICAL HISTORY: . Cardiovascular disease. Cerebrovascular disease. Hypertension.Diabe luis felipe . COMPARISON: No prior exams available for comparison. FINDINGS: Bony structures are intact and in normal alignment. Osseous density is normal. Soft tissue swelling o denny the dorsum of the midfoot with apparent ulceration or gas. No radiopaque foreign bodies seen. Vascular calcifications are present. CONCLUSION: Soft tissue swelling and apparent ulceration or gas over the dorsum of the midfoot in the region of t he metatarsals with no underlying bony abnormality. There is no radiopaque foreign body. Electronically signed by: Khoa Wasserman MD 01/08/2018 6:20 PM EDT
[2018-01-08 18:23] LABS: Potassium 5.5 meq/L (3.5-5.1)
--- NOTE | 2018-01-08 19:17 | CT ---
EXAM DATE: 01/08/2018 7:11 PM EDT AGE/SEX: 77 years / Male INDICATIONS: Left foot pain and swelling. Large diabetic ulceration CLINICAL DATA: This is the patient's initial encounter. Patient reports that signs and symptoms have been present for 4 - 6 days and indicates a pain score of 7/10. MEDICAL/SURGICAL HISTORY: Diabetes. Pacemaker. RADIATION DOSE: 5.53 CTDI (mGy) COMPARISON: [facility] [place]OT COMPLETE LEFT 3V, 01/08/2018. . TECHNIQUE: Multiple contiguous axial images were acquired using a multirow detector CT scanner after the intravenous administration of 85 ml Omnipaque 350 (iohexol) nonionic water-soluble contrast as a single exam dose. Multiplanar reconstruction was performed in the sagittal and coronal planes. Us ing automated exposure control and adjustment of the mA and/or kV according to patient size, radiatio n dose was kept as low as reasonably achievable to obtain optimal diagnostic quality images. DICOM f ormat image data is available electronically for review and comparison. FINDINGS: Bones: The bony structures about the forefoot are in normal alignment. The metatarsi, phalanges, an d distal tarsal row osseous structures are intact. No fracture is seen. Joints: No significant arthropathy or bony hypertrophy is seen. Soft Tissues: There is a large ulceration along the dorsum of the midfoot over the region of the met atarsals with irregularity and tissue defect. There is no distinct abscess. There is mild skin thicke braden. Other: No foreign bodies seen. Post Contrast: No abnormal areas of enhancement are seen in the marrow or soft tissues. CONCLUSION: 1. Large ulceration along the dorsum of the midfoot with irregularity and soft tissue defect. There is no distinct abscess or underlying bony abnormality. Electronically signed by: Khoa Wasserman MD 01/08/2018 7:16 PM EDT
[2018-01-08] MEDS ORDERED: Bisacodyl 10 MG Supp RECTAL PRN (20:27)
[2018-01-08] MEDS ORDERED: Acetaminophen 325 MG Tablet PO PRN (20:27)
[2018-01-08] MEDS ORDERED: Dextrose 50% in Water 50 ML Vial IV.PUSH PRN (20:57)
--- NOTE | 2018-01-08 20:57 | P.HP ---
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 Patient approximately 1 month ago scraped his left foot and had a small ulcer on he went to the [facility] wound care and was treated with antibiotic ointments with dressing changes however the wound on the left foot continued to worsen and he was seen sent to a mechanical insulator Dr. Yip, and despite podiatry treatment the wound continue to enlarge Dr. Porter on 1 of the patient sent to the hospital for IV antibiotics and CT scan of the foot. CT scan of the foot showed a large ulcer in the dorsum left midfoot with surrounding cellulitis. Patient will be admitted and started on IV vancomycin and IV Zosyn at this time. Further plan pending podiatry evaluation. - Diagnosis (1) Diabetic foot infection (2) Diabetes (3) Atrial fibrillation Inpatient Certification: I certify that the inpatient services were ordered in accordance with Medicare regulations governing the order. This includes certification that hospital inpatient services are reasonable and necessary and in the case of services not specified as inpatient-only under 42 CFR 419.22(n), that they are appropriately provided as inpatient services in accordance to with the 2-midnight benchmark under 43 CFR 412.3(e) Estimated Total Length of Stay (Days): 3 Plans for Post Hospital Care: Not yet determined Review of Systems Patient denies fever chills nausea vomiting chest pain shortness of breath no other symptoms except that related to slight pain to the foot PMFSH - History History Provided By: Patient - Medical History Medical History: Medical History (Last Updated 01/08/18 @ 20:[address] MD) Pacemaker (Acute) A-fib Bone cancer Wound abscess Diabetes - Tobacco History Second Hand Smoke Exposure: No Tobacco Use In Past 30 Days: No Smoking Status: Never smoker - Alcohol History How Often Do You Have a Drink Containing Alcohol: Never - Immunization History Tetanus Immunization: <5 Years Hx Influenza Vaccine This Season: Yes Medications and Allergies Active Medications: Active Medications Acetaminophen (Tylenol) 650 mg PO Q4H PRN PRN Reason: Temp > 100.4 Al Hydroxide/Mg Hydroxide (Milk Of Magnesia Liq) 30 ml PO Q12H PRN PRN Reason: Mild Constipation Apixaban (Eliquis) 5 mg PO BID [facility] Aspirin (Ecotrin) 81 mg PO DAILY GR[facility]DA Bisacodyl (Dulcolax Supp) 10 mg RECTAL DAILY PRN PRN Reason: SEVERE CONSITIPATION Finasteride (Proscar) 5 mg PO HS GRISELDA Furosemide (Lasix) 20 mg PO DAILY GRISELDA Gabapentin (Neurontin) 600 mg PO QPM GR[facility]DA Glimepiride (Amaryl) 2 mg PO BID [facility] Pharmacy Profile Note (Vancomycin Consult Pharmacy) 0 mls @ 0 mls/hr OTHER UNSCH GRISELDA Piperacillin/Tazobactam/Dextrose (Zosyn 3.375 Gm Premix) 50 mls @ 100 mls/hr IV.SIG Q6H [facility] Lactulose (Lactulose Liq) 30 ml PO DAILY PRN PRN Reason: SEVERE CONSITIPATION Metoprolol Tartrate (Lopressor) 25 mg PO BID [facility] Non-Formulary Medication (Rosuvastatin) 20 mg PO QPM GRISELDA Senna/Docusate Sodium (Kesha-Colace) 1 tab PO BID [facility] Sennosides (Senokot) 17.2 mg PO Q12H PRN PRN Reason: Moderate Constipation Sodium Chloride (Ns Flush) 2 ml IV.FLUSH PRN PRN PRN Reason: FLUSH AFTER USING IV ACCESS Tamsulosin HCl (Flomax) 0.4 mg PO HS GRISELDA Temazepam (Restoril) 15 mg PO HS PRN PRN Reason: INSOMNIA Allergies Allergy/AdvReac Type Severity Reaction Status Date / Time MRI PRECAUTION AdvReac Severe NON REVO Uncoded 07/24/17 08:53 PACEMAKER 11/20/13 LRS Home Medications Medication Instructions Recorded Confirmed Type apixaban [Eliquis] 5 mg PO BID 01/08/18 01/08/18 History aspirin 81 mg PO DAILY 01/08/18 01/08/18 History finasteride 5 mg PO HS 01/08/18 01/08/18 History furosemide [Lasix] 20 mg PO DAILY 01/08/18 01/08/18 History gabapentin 600 mg PO QPM 01/08/18 01/08/18 History glimepiride 2 mg PO BID 01/08/18 01/08/18 History metformin 1,000 mg PO BID 01/08/18 01/08/18 History metoprolol tartrate 25 mg PO BID 01/08/18 01/08/18 History rosuvastatin [Crestor] 20 mg PO QPM 01/08/18 01/08/18 History tamsulosin 0.4 mg PO HS 01/08/18 01/08/18 History Exam Vital signs: Vital Signs 01/08/18 16:40 01/08/18 18:25 Temperature 96 F L Pulse Rate 71 69 Respiratory Rate 20 18 Blood Pressure 129/75 138/63 Pulse Oximetry 94 L 96 Narrative: GENERAL: SKIN: Warm and dry. HEAD: Atraumatic. Normocephalic. EYES: Pupils equal and round. No scleral icterus. No injection or drainage. ENT: No nasal bleeding or discharge. Mucous membranes pink and moist. NECK: Trachea midline. No JVD. CARDIOVASCULAR: irreg Regular rate and rhythm. RESPIRATORY: No accessory muscle use. Clear to auscultation. Breath sounds equal bilaterally. GASTROINTESTINAL: Abdomen soft, non-tender, nondistended. Hepatic and splenic margins not palpable. MUSCULOSKELETAL: Extremities without clubbing, cyanosis, or edema. No obvious deformities. 3 by 3 cm ulcer left foot with cellulitis NEUROLOGICAL: Awake and alert. No obvious cranial nerve deficits. Motor grossly within normal limits. Five out of 5 muscle strength in the arms and legs. Normal speech. PSYCHIATRIC: Appropriate mood and affect; insight and judgment normal. Results - Labs CBC & Chem 7: 01/08/18 17:36 01/08/18 17:36 Labs: Laboratory Results - last 24 hr 01/08/18 01/08/18 01/08/18 17:26 17:36 17:36 WBC RBC Hgb Hct MCV MCH MCHC RDW Plt Count MPV Neut % (Auto) Lymph % (Auto) [place] % (Auto) Eos % (Auto) Baso % (Auto) Neut # (Auto) Lymph # (Auto) [place] # (Auto) Eos # (Auto) Baso # (Auto) WBC Differential Differential Comment ESR 94 H PT INR APTT Sodium Potassium Chloride Carbon Dioxide Anion Gap BUN Creatinine Estimated GFR Random Glucose Lactic Acid 2.7 H Calcium Total Bilirubin AST ALT Alkaline Phosphatase C-Reactive Protein 8.00 H Total Protein Albumin 01/08/18 01/08/18 01/08/18 17:36 17:36 17:40 WBC 10.9 RBC 3.64 L Hgb 9.9 L Hct 30.9 L MCV 85.0 MCH 27.2 MCHC 32.0 RDW 15.8 Plt Count 629 H MPV 6.5 L Neut % (Auto) 80.0 H Lymph % (Auto) 8.1 L [place] % (Auto) 9.5 H Eos % (Auto) 1.3 Baso % (Auto) 1.1 Neut # (Auto) 8.7 H Lymph # (Auto) 0.9 L [place] # (Auto) 1.0 H Eos # (Auto) 0.1 Baso # (Auto) 0.1 WBC Differential . Differential Comment Auto diff final ESR PT 13.3 H INR 1.3 APTT 28.2 Sodium 138 Potassium 5.5 H Chloride 104 Carbon Dioxide 25.6 Anion Gap 8 BUN 25 H Creatinine 0.88 Estimated GFR 84 L Random Glucose 125 H Lactic Acid Calcium 8.8 Total Bilirubin 0.2 AST 72 H ALT 46 Alkaline Phosphatase 153 H C-Reactive Protein Total Protein 7.7 Albumin 2.1 L - Imaging Impressions Foot CT 01/08/18 17:24 CONCLUSION: 1. Large ulceration along the dorsum of the midfoot with irregularity and soft tissue defect. There is no distinct abscess or underlying bony abnormality. Foot X-Ray 01/08/18 17:51 CONCLUSION: Soft tissue swelling and apparent ulceration or gas over the dorsum of the midfoot in the region of the metatarsals with no underlying bony abnormality. There is no radiopaque foreign body. Caprini VTE Risk Assessment Caprini VTE Risk Assessment: Moderate/High Risk (score >= 2) Caprini Risk Assessment Model: Point Value = 1 Point Value = 2 Point Value = 3 Point Value = 5 Age 41-60 Minor surgery BMI > 25 kg/m2 Swollen legs Varicose veins or History of unexplained or recurrent spontaneous Oral contraceptives or hormone replacement Sepsis (< 1 month) Serious lung disease, including pneumonia (< 1 month) Abnormal pulmonary function Acute myocardial infarction Congestive heart failure (< 1 month) History of inflammatory bowel disease Medical patient at bed rest Age 61-74 Arthroscopic surgery Major open surgery (> 45 min) Laparoscopic surgery (> 45 min) Malignancy Confined to bed (> 72 hours) Immobilizing plaster cast Central venous access Age >= 75 History of VTE Family history of VTE Factor V Leiden Prothrombin [id number] Lupus anticoagulant Anticardiolipin antibodies Elevated serum homocysteine Heparin-induced thrombocytopenia Other congenital or acquired thrombophilia Stroke (< 1 month) Elective arthroplasty Hip, pelvis, or leg fracture Acute spinal cord injury (< 1 month) Prophylaxis Regimen: Total Risk Factor Score Risk Level Prophylaxis Regimen 0-1 Low Early ambulation 2 Moderate Order ONE of the following: *Sequential Compression Device (SCD) *Heparin 5000 units SQ BID 3-4 Higher Order ONE of the following medications: *Heparin 5000 units SQ TID *Enoxaparin/Lovenox 40 mg SQ daily (WT < 150 kg, CrCl > 30 mL/min) *Enoxaparin/Lovenox 30 mg SQ daily (WT < 150 kg, CrCl > 10-29 mL/min) *Enoxaparin/Lovenox 30 mg SQ BID (WT < 150 kg, CrCl > 30 mL/min) AND/OR *Sequential Compression Device (SCD) 5 or more Highest Order ONE of the following medications: *Heparin 5000 units SQ TID (Preferred with Epidurals) *Enoxaparin/Lovenox 40 mg SQ daily (WT < 150 kg, CrCl > 30 mL/min) *Enoxaparin/Lovenox 30 mg SQ daily (WT < 150 kg, CrCl > 10-29 mL/min) *Enoxaparin/Lovenox 30 mg SQ BID (WT < 150 kg, CrCl > 30 mL/min) AND *Sequential Compression Device (SCD) Assessment and Plan - Assessment (1) Diabetic foot infection Code(s): E11.628 - Type 2 diabetes mellitus with other skin complications; L08.9 - Local infection of the skin and subcutaneous tissue, unspecified Status: Acute Plan: failed out patient treatment-start IV vancomycin and Zosyn,consult podiatry (2) Diabetes Code(s): E11.9 - Type 2 diabetes mellitus without complications Status: Acute Plan: continue home med sliding scale with coverage (3) Atrial fibrillation Code(s): I48.91 - Unspecified atrial fibrillation Status: Acute Plan: continue current meds - Plan further plan as per podiatry Code Status: Full Discussed Condition With: Case discussed with patient
[2018-01-08] MEDS ORDERED: Vancomycin Consult Pharmacy 1 EACH OTHER SCH (21:00)
[2018-01-08] MEDS: Finasteride 5 MG Tablet PO SCH (21:30)
[2018-01-08] MEDS: Metoprolol Tartrate 25 MG Tablet PO SCH (21:30)
[2018-01-08] MEDS: Glimepiride 2 MG Tablet PO SCH (21:30)
[2018-01-08] MEDS: Senna/Docusate Sodium 8.6/50 MG Tablet PO SCH (21:31)
[2018-01-08] MEDS: Temazepam 15 MG Capsule PO PRN (21:37)
[2018-01-09] MEDS: Piperacil/Tazo 3.375 GM Premix 50 ML IV.SIG SCH ×4 (00:39→17:56)
[2018-01-09] MEDS: Insulin NovoLOG Aspart Correctional Sugar Inj SQ SCH ×4 (00:40→17:57)
[2018-01-09] MEDS: Vancomycin Inj 1,500 MG in Sodium Chlor 0.9% Inj 500 ML IV.SIG SCH ×2 (02:00→14:36)
[2018-01-09 07:20] LABS: Baso # (Auto) 0.1 th/mm3 (0.0-0.2); Baso % (Auto) 1.1 % (0.0-2.0); Eos # (Auto) 0.1 th/mm3 (0.0-0.4); Hematocrit 29.8 % (39.0-51.0); Hemoglobin 9.5 gm/dL (13.0-17.0); Lymph # (Auto) 0.8 th/mm3 (1.0-4.8); Lymph % (Auto) 8.5 % (9.0-44.0); Mean Corpuscular HGB Conc 31.8 % (32.0-36.0); Mean Corpuscular Hemoglobin 26.8 pg (27.0-34.0); Mean Corpuscular Volume 84.4 fL (80.0-100.0); Mean Platelet Volume 6.2 fL (7.0-11.0); Mono # (Auto) 0.9 th/mm3 (0.0-0.9); Mono % (Auto) 10.1 % (0.0-8.0); Neut # (Auto) 7.4 th/mm3 (1.8-7.7); Neut % (Auto) 79.3 % (16.0-70.0); Platelet Count 565 th/mm3 (150-450); Red Blood Count 3.52 mil/mm3 (4.50-5.90); Red Cell Distribution Width 15.8 % (11.6-17.2); White Blood Count 9.4 th/mm3 (4.0-11.0)
[2018-01-09 07:52] LABS: Alanine Aminotransferase 40 U/L (12-78); Albumin 2.1 g/dL (3.4-5.0); Anion Gap 7 meq/L (5-15); Aspartate Aminotransferase 41 U/L (15-37); Blood Urea Nitrogen 22 mg/dL (7-18); Calcium 8.6 mg/dL (8.5-10.1); Carbon Dioxide 28.7 meq/L (21.0-32.0); Chloride 106 meq/L (98-107); Glomerular Filtration Rate 89 mL/min (>89); Glucose,Random 110 mg/dL (74-106); Sodium 142 meq/L (136-145)
[2018-01-09 07:53] LABS: Alkaline Phosphatase 146 U/L (45-117); Total Protein 7.1 g/dL (6.4-8.2)
[2018-01-09] MEDS ORDERED: Sodium Chloride 0.45 % Inj 1,000 ML IV.CONT SCH (10:00)
[2018-01-09] MEDS: Metoprolol Tartrate 25 MG Tablet PO SCH ×2 (10:26→21:21)
[2018-01-09] MEDS: Furosemide 20 MG Tablet PO SCH (10:26)
[2018-01-09] MEDS: Glimepiride 2 MG Tablet PO SCH ×2 (10:27→21:30)
[2018-01-09] MEDS: Senna/Docusate Sodium 8.6/50 MG Tablet PO SCH ×2 (10:27→21:20)
--- NOTE | 2018-01-09 15:56 | P.PNIM ---
Subjective Interval history: Follow up diabetic left foot wound Physical Exam Vital signs: Vital Signs 01/08/18 16:40 01/08/18 18:25 01/09/18 00:00 Temperature 96 F L 97.5 F L Pulse Rate 71 69 70 Respiratory Rate 20 18 21 Blood Pressure 129/75 138/63 141/72 H Pulse Oximetry 94 L 96 92 L 01/09/18 04:00 01/09/18 08:00 01/09/18 12:00 Temperature 97.2 F L 97.5 F L 97.3 F L Pulse Rate 70 74 70 Respiratory Rate 20 18 20 Blood Pressure 131/73 131/63 126/68 Pulse Oximetry 95 94 L 97 Intake & Output 01/08/18 01/09/18 01/09/18 18:59 06:59 18:59 Intake Total 1155 / 1155 50 / 50 Balance 1155 / 1155 50 / 50 Weight 110.223 kg Intake: IV 915 / 915 50 / 50 Zosyn 3.375 GM Premix 50 ML @ 150 / 150 50 / 50 100 mls/hr IV.SIG Q6H GRISELDA Rx#: [id number] Vancomycin Inj 1,000 MG In NS 250 / 250 Inj 250 ML @ 200 mls/hr IV.SIG ONCE ONE Rx#:[id number] Vancomycin Inj 1,500 MG In NS 515 / 515 Inj 500 ML @ 250 mls/hr IV.SIG Q12H GRISELDA Rx#:[id number] Oral 240 / 240 Other: # Voids 2 Date of Last Bowel Movement 01/08/18 Weight On Admission 110 kg Narrative: SKIN: Warm and dry. 3 by 3 cm ulcer left foot with cellulitis CARDIOVASCULAR: irreg Regular rate and rhythm. RESPIRATORY: No accessory muscle use. Clear to auscultation. Breath sounds equal bilaterally. GASTROINTESTINAL: Abdomen soft, non-tender, nondistended. Hepatic and splenic margins not palpable. MUSCULOSKELETAL: Extremities without clubbing, cyanosis, or edema. No obvious deformities. NEUROLOGICAL: Awake and alert. No obvious cranial nerve deficits. Motor grossly within normal limits. Five out of 5 muscle strength in the arms and legs. Normal speech. PSYCHIATRIC: Appropriate mood and affect; insight and judgment normal. Results - Labs CBC & Chem 7: 01/09/18 06:34 01/11/18 06:27 Laboratory Results - last 24 hr 01/08/18 01/08/18 01/08/18 17:26 17:36 17:36 WBC RBC Hgb Hct MCV MCH MCHC RDW Plt Count MPV Neut % (Auto) Lymph % (Auto) Day % (Auto) Eos % (Auto) Baso % (Auto) Neut # (Auto) Lymph # (Auto) Day # (Auto) Eos # (Auto) Baso # (Auto) WBC Differential Differential Comment ESR 94 H PT INR APTT Sodium Potassium Chloride Carbon Dioxide Anion Gap BUN Creatinine Estimated GFR POC Glucose Random Glucose Lactic Acid 2.7 H Calcium Total Bilirubin AST ALT Alkaline Phosphatase C-Reactive Protein 8.00 H Total Protein Albumin 01/08/18 01/08/18 01/08/18 17:36 17:36 17:40 WBC 10.9 RBC 3.64 L Hgb 9.9 L Hct 30.9 L MCV 85.0 MCH 27.2 MCHC 32.0 RDW 15.8 Plt Count 629 H MPV 6.5 L Neut % (Auto) 80.0 H Lymph % (Auto) 8.1 L Day % (Auto) 9.5 H Eos % (Auto) 1.3 Baso % (Auto) 1.1 Neut # (Auto) 8.7 H Lymph # (Auto) 0.9 L Day # (Auto) 1.0 H Eos # (Auto) 0.1 Baso # (Auto) 0.1 WBC Differential . Differential Comment Auto diff final ESR PT 13.3 H INR 1.3 APTT 28.2 Sodium 138 Potassium 5.5 H Chloride 104 Carbon Dioxide 25.6 Anion Gap 8 BUN 25 H Creatinine 0.88 Estimated GFR 84 L POC Glucose Random Glucose 125 H Lactic Acid Calcium 8.8 Total Bilirubin 0.2 AST 72 H ALT 46 Alkaline Phosphatase 153 H C-Reactive Protein Total Protein 7.7 Albumin 2.1 L 01/08/18 01/08/18 01/08/18 21:02 21:05 23:57 WBC RBC Hgb Hct MCV MCH MCHC RDW Plt Count MPV Neut % (Auto) Lymph % (Auto) Day % (Auto) Eos % (Auto) Baso % (Auto) Neut # (Auto) Lymph # (Auto) Day # (Auto) Eos # (Auto) Baso # (Auto) WBC Differential Differential Comment ESR PT INR APTT Sodium Potassium Chloride Carbon Dioxide Anion Gap BUN Creatinine Estimated GFR POC Glucose 109 129 H Random Glucose Lactic Acid 1.7 Calcium Total Bilirubin AST ALT Alkaline Phosphatase C-Reactive Protein Total Protein Albumin 01/09/18 01/09/18 01/09/18 05:01 06:34 06:34 WBC 9.4 RBC 3.52 L Hgb 9.5 L Hct 29.8 L MCV 84.4 MCH 26.8 L MCHC 31.8 L RDW 15.8 Plt Count 565 H MPV 6.2 L Neut % (Auto) 79.3 H Lymph % (Auto) 8.5 L Day % (Auto) 10.1 H Eos % (Auto) 1.0 Baso % (Auto) 1.1 Neut # (Auto) 7.4 Lymph # (Auto) 0.8 L Day # (Auto) 0.9 Eos # (Auto) 0.1 Baso # (Auto) 0.1 WBC Differential . Differential Comment Auto diff final ESR PT INR APTT Sodium 142 Potassium 5.0 Chloride 106 Carbon Dioxide 28.7 Anion Gap 7 BUN 22 H Creatinine 0.83 Estimated GFR 89 POC Glucose 139 H Random Glucose 110 H Lactic Acid Calcium 8.6 Total Bilirubin 0.3 AST 41 H ALT 40 Alkaline Phosphatase 146 H C-Reactive Protein Total Protein 7.1 D Albumin 2.1 L 01/09/18 01/09/18 08:02 12:59 WBC RBC Hgb Hct MCV MCH MCHC RDW Plt Count MPV Neut % (Auto) Lymph % (Auto) Day % (Auto) Eos % (Auto) Baso % (Auto) Neut # (Auto) Lymph # (Auto) Day # (Auto) Eos # (Auto) Baso # (Auto) WBC Differential Differential Comment ESR PT INR APTT Sodium Potassium Chloride Carbon Dioxide Anion Gap BUN Creatinine Estimated GFR POC Glucose 120 H 103 Random Glucose Lactic Acid Calcium Total Bilirubin AST ALT Alkaline Phosphatase C-Reactive Protein Total Protein Albumin Microbiology 01/08/18 17:26 Blood - Peripheral Aerobic Blood Culture - Preliminary No growth in 1 day 01/08/18 17:26 Blood - Peripheral Anaerobic Blood Culture - Preliminary No growth in 1 day 01/08/18 17:30 Blood - Peripheral Aerobic Blood Culture - Preliminary No growth in 1 day 01/08/18 17:30 Blood - Peripheral Anaerobic Blood Culture - Preliminary No growth in 1 day - Imaging Impressions Foot CT 01/08/18 17:24 CONCLUSION: 1. Large ulceration along the dorsum of the midfoot with irregularity and soft tissue defect. There is no distinct abscess or underlying bony abnormality. Foot X-Ray 01/08/18 17:51 CONCLUSION: Soft tissue swelling and apparent ulceration or gas over the dorsum of the midfoot in the region of the metatarsals with no underlying bony abnormality. There is no radiopaque foreign body. Assessment and Plan - Assessment (1) Diabetic foot infection Code(s): E11.628 - Type 2 diabetes mellitus with other skin complications; L08.9 - Local infection of the skin and subcutaneous tissue, unspecified Status: Acute Plan: Diabetic foot infection approximately 1 month ago scraped his left foot and had a small ulcer on he went to the [facility] wound care and was treated with antibiotic ointments with dressing changes however the wound on the left foot continued to worsen and he was seen sent to a manager field service Dr. Rubi, and despite podiatry treatment the wound continue to enlarge Dr. Rubi sent the hospital for IV antibiotics and CT scan of the foot. CT scan of the foot showed a large ulcer in the dorsum left midfoot with surrounding cellulitis. Patient admitted and started on IV vancomycin and IV Zosyn. Further plan pending podiatry discussed with podiatry who feels patient may need 2 - 4 weeks IV abx post discharge blood cultures and wound culture pending consult IV for assistance Diabetes continue home metformin 1000 mg PO BID and glimepiride 2 mg PO BID accu checks ACHS with sliding scale coverage Atrial fibrillation continue metoprolol 25 BID and Eliquis DVT prophylaxis on Eliquis - Attending Attestation Patient examined. Assessment and plan formulated with Chasidy Jim PA-C. I agree with the above.
[2018-01-09] MEDS: Gabapentin 300 MG Capsule PO SCH (17:57)
--- NOTE | 2018-01-09 19:47 | MB ---
cc: Elmer Ventura MD DATE: 01/09/2018 REQUESTING PHYSICIAN: Magdy Mauricio DO REASON: Diabetic foot ulcer. Please evaluate and advise regarding antibiotics. HISTORY OF PRESENT ILLNESS: This is a 77-year-old white male who developed erythema at the dorsum of the left foot about 2 weeks ago. The patient was referred by home care nurse givers to the wound center who then referred him to the supervisor in circuit testing. He saw the supervisor in circuit testing yesterday and an office debridement was performed and he was sent to the emergency department for admission for IV antibiotics. Information about culture is not available at this time. A new culture was taken from the crater of the wound today. The patient has erythema over the dorsum of the left foot, encompassing most of the left foot with a crater of the ulcer at the base of the third and fourth toe region. He denies fever, chills, nausea, vomiting or other symptoms. He has neuropathy. A CT scan showed a large ulceration along the dorsum of the midfoot with irregularity and soft tissue defect. No distinct abscess or underlying bony abnormality noted. Blood cultures were taken and have no growth in 1 day. The white blood cell count is 10.9. PAST MEDICAL HISTORY: Diabetes mellitus, atrial fibrillation, pacemaker, peripheral vascular disease, deep venous thrombosis. ALLERGIES: NO KNOWN DRUG ALLERGIES. MEDICATIONS: 1. Vancomycin. 2. Piperacillin/tazobactam. 3. Flomax. 4. Restoril. 5. Kesha-Colace. 6. Lopressor. 7. Amaryl. 8. Neurontin. 9. Proscar. 10. Eliquis. 11. Ecotrin. SOCIAL HISTORY: The patient is . No tobacco, no alcohol, no illicit drugs. FAMILY HISTORY: Noncontributory. REVIEW OF SYSTEMS: All systems have been reviewed and negative. PHYSICAL EXAMINATION: GENERAL: Well-developed male in no acute distress. He is awake and alert and oriented. VITAL SIGNS: Temperature 97.6, BP 135/71, respirations 18, heart rate 72. HEENT: Head atraumatic. Extraocular movements grossly intact. Pupils reactive to light. No icterus. Oropharynx has moist mucosa. No lesions. NECK: Supple without adenopathy. LUNGS: Clear to auscultation. No murmurs, rubs or gallops. HEART: Normal S1, S2. LUNGS: Clear to auscultation. HEART: Normal S1 and S2. No murmurs, rubs or gallops. ABDOMEN: Bowel sounds present. Soft, no tenderness appreciated. RECTAL: Not performed. EXTREMITIES: The left foot has an ulcer at the dorsal aspect overlying the area of erythema at the dorsum of the foot. There is good granulation tissue visible and slight serous drainage. The other extremities have no clubbing, cyanosis or edema. SKIN: No rash. NEUROLOGIC: No gross focal finding. PSYCHIATRIC: Patient is calm and cooperative. LABORATORY DATA: WBC 9.4, platelets 565, hemoglobin 9.5, 79% neutrophils. Sedimentation rate 94. Estimated GFR 89, creatinine 0.83. IMPRESSION: 1. Wound infection of the left foot with cellulitis. 2. Diabetes mellitus. 3. CT scan shows no evidence of osteomyelitis. RECOMMENDATIONS: 1. Continue vancomycin. 2. Continue piperacillin/tazobactam. 3. Follow culture of the wound for antibiotic adjustment. 4. Further recommendations regarding surgery to be determined by podiatry. Once the culture is available antibiotic determination can be made and the patient can be treated outpatient. I suspect that he will need a course of IV antibiotic for treatment. Thank you for this consultation. The patient's progress will be monitored and further recommendations will be given upon followup. MD ABDOULAYE LehmanD/ct , 05:45 PM , 05:59 PM
[2018-01-09] MEDS: Finasteride 5 MG Tablet PO SCH (21:20)
--- NOTE | 2018-01-09 21:43 | MB ---
cc: Salma Hdz DPM DATE: 01/09/2018 CHIEF COMPLAINT: Left foot ulceration. HISTORY OF PRESENT ILLNESS: Mr. Cabrera is a 77-year-old male patient who is well known to my associate, Dr. Eder Rubi. She saw him in the office for a left foot wound, which he had previously been seen in the [facility] for, but over the last month, he feels that the wound has progressively worsened and gotten deeper. Dr. Rubi sent him in for further advanced imaging and IV antibiotics. The patient denies any pain. He is neuropathic. He denies any nausea, vomiting, fever, headaches, or chills. PAST MEDICAL HISTORY: Diabetes, atrial fibrillation, history of bone cancer, and a pacemaker. PAST SURGICAL HISTORY: Pacemaker implantation. ALLERGIES: NO KNOWN DRUG ALLERGIES. SOCIAL HISTORY: The patient lives at home with his . He denies any alcohol, tobacco, or drug abuse. MEDICATIONS: Please see list. VITAL SIGNS: Temperature is 97.6, pulse is 72, respiratory rate 18, blood pressure 135/71, pulse oximetry 96% O2 on room air. LABORATORY DATA: White count 9.4, hemoglobin 9.5, hematocrit 29.8, platelets 565. INR 1.3. Sodium 142, potassium 5.0, chloride 106, carbon dioxide 28.7, BUN 22. C-reactive protein is pending. CAT scan of the foot shows a large dorsal foot ulceration with surrounding edema and cellulitis, but no signs of cortical erosion or osteomyelitis. PHYSICAL EXAMINATION: The patient has diminished but palpable dorsalis pedis and posterior tibialis Capillary fill time less than 3 seconds. Gross sensation severely diminished. Right dorsal distal foot just proximal to the level of the MPJs with a 3.5 x 3.0 x 0.5 full-thickness ulceration. No exposed bone, but there is trace amount of exposed tendon. Wound bed is fibrogranular. There is periwound erythema. No malodor. Mild serous drainage. ASSESSMENT AND PLAN: Left foot, stage III ulceration with surrounding cellulitis. The patient is to have a PICC line for 4 weeks for home IV antibiotics. He will need a home wound VAC arranged as well as home health care. Wound VAC placed today at bedside by [employer] service technician. The patient is to follow up with Dr. Rubi at time of discharge, likely 48-72 hours from now. Thank you for this consultation and allowing me to be involved in this patient's care. BRANDON Woodruff/luly , 06:54 PM , 07:02 PM
[2018-01-09] MEDS: Temazepam 15 MG Capsule PO PRN (22:01)
[2018-01-10] MEDS: Insulin NovoLOG Aspart Correctional Sugar Inj SQ SCH ×4 (00:30→18:06)
[2018-01-10] MEDS: Piperacil/Tazo 3.375 GM Premix 50 ML IV.SIG SCH ×3 (00:31→15:32)
[2018-01-10] MEDS: Vancomycin Inj 1,500 MG in Sodium Chlor 0.9% Inj 500 ML IV.SIG SCH ×2 (01:50→15:56)
[2018-01-10] MEDS: Glimepiride 2 MG Tablet PO SCH ×2 (08:35→21:27)
[2018-01-10] MEDS: Metoprolol Tartrate 25 MG Tablet PO SCH ×2 (08:35→21:27)
[2018-01-10] MEDS: Furosemide 20 MG Tablet PO SCH (11:03)
[2018-01-10] MEDS: Senna/Docusate Sodium 8.6/50 MG Tablet PO SCH ×2 (11:04→21:28)
--- NOTE | 2018-01-10 12:16 | P.PNID ---
Subjective Remarks: Patient feels okay. No significant pain in the left foot. Afebrile. Wound culture preliminary has staph. Blood culture has no growth. Patient admitted for IV antibiotics for left foot cellulitis post debridement of the dorsum of the left foot. Past Medical History: PAST MEDICAL HISTORY: Diabetes mellitus, atrial fibrillation, pacemaker, peripheral vascular disease, deep venous thrombosis. Allergies/Adverse Reactions: Allergies MRI PRECAUTION Adverse Reaction (Severe, Uncoded 07/24/17 08:53) NON REVO PACEMAKER 11/20/13 LRS Objective Vital Signs 01/09/18 16:00 01/09/18 20:00 01/10/18 04:00 Temperature 97.6 F 97.6 F 97.2 F L Pulse Rate 72 71 69 Respiratory Rate 18 Blood Pressure 135/71 129/72 118/69 Pulse Oximetry 96 93 L 96 01/10/18 08:00 Temperature 97.4 F L Pulse Rate 70 Respiratory Rate 20 Blood Pressure 134/66 Pulse Oximetry 94 L Intake & Output 01/09/18 01/10/18 01/10/18 18:59 06:59 18:59 Intake Total 615 / 615 805 / 805 50 / 50 Output Total 500 / 500 200 / 200 Balance 115 / 115 605 / 605 50 / 50 Weight 108.4 kg Intake: IV 615 / 615 565 / 565 50 / 50 Zosyn 3.375 GM Premix 50 ML @ 100 / 100 50 / 50 50 / 50 100 mls/hr IV.SIG Q6H GRISELDA Rx#: [id number] Vancomycin Inj 1,500 MG In NS 515 / 515 515 / 515 Inj 500 ML @ 250 mls/hr IV.SIG Q12H GRISELDA Rx#:[id number] Oral 240 / 240 Output: Urine 500 / 500 200 / 200 Other: Mode Setting Left Foot Continuous Right Back Continuous Date of Last Bowel Movement 01/08/18 # Bowel Movements 0 0 01/08/18 17:26 Blood - Peripheral Aerobic Blood Culture - Preliminary No growth in 2 days 01/08/18 17:26 Blood - Peripheral Anaerobic Blood Culture - Preliminary No growth in 2 days 01/08/18 17:30 Blood - Peripheral Aerobic Blood Culture - Preliminary No growth in 2 days 01/08/18 17:30 Blood - Peripheral Anaerobic Blood Culture - Preliminary No growth in 2 days 01/09/18 16:50 Abscess - Foot Gram Stain - Final 01/09/18 16:50 Abscess - Foot Wound Culture - Pending Lab - Hematology Results 01/08/18 01/08/18 01/09/18 17:36 17:36 06:34 WBC 10.9 9.4 RBC 3.64 L 3.52 L Hgb 9.9 L 9.5 L Hct 30.9 L 29.8 L MCV 85.0 84.4 MCH 27.2 26.8 L MCHC 32.0 31.8 L RDW 15.8 15.8 Plt Count 629 H 565 H MPV 6.5 L 6.2 L Neut % (Auto) 80.0 H 79.3 H Lymph % (Auto) 8.1 L 8.5 L [place] % (Auto) 9.5 H 10.1 H Eos % (Auto) 1.3 1.0 Baso % (Auto) 1.1 1.1 Neut # (Auto) 8.7 H 7.4 Lymph # (Auto) 0.9 L 0.8 L [place] # (Auto) 1.0 H 0.9 Eos # (Auto) 0.1 0.1 Baso # (Auto) 0.1 0.1 WBC Differential . . Differential Comment Auto diff final Auto diff final ESR 94 H Lab - Chemistry Results 01/08/18 01/08/18 01/08/18 17:26 17:36 17:36 Sodium 138 Potassium 5.5 H Chloride 104 Carbon Dioxide 25.6 Anion Gap 8 BUN 25 H Creatinine 0.88 Estimated GFR 84 L POC Glucose Random Glucose 125 H Lactic Acid 2.7 H Calcium 8.8 Total Bilirubin 0.2 AST 72 H ALT 46 Alkaline Phosphatase 153 H C-Reactive Protein 8.00 H Total Protein 7.7 Albumin 2.1 L 01/08/18 01/08/18 01/08/18 21:02 21:05 23:57 Sodium Potassium Chloride Carbon Dioxide Anion Gap BUN Creatinine Estimated GFR POC Glucose 109 129 H Random Glucose Lactic Acid 1.7 Calcium Total Bilirubin AST ALT Alkaline Phosphatase C-Reactive Protein Total Protein Albumin 01/09/18 01/09/18 01/09/18 05:01 06:34 08:02 Sodium 142 Potassium 5.0 Chloride 106 Carbon Dioxide 28.7 Anion Gap 7 BUN 22 H Creatinine 0.83 Estimated GFR 89 POC Glucose 139 H 120 H Random Glucose 110 H Lactic Acid Calcium 8.6 Total Bilirubin 0.3 AST 41 H ALT 40 Alkaline Phosphatase 146 H C-Reactive Protein Total Protein 7.1 D Albumin 2.1 L 01/09/18 01/09/18 01/09/18 12:59 17:02 21:29 Sodium Potassium Chloride Carbon Dioxide Anion Gap BUN Creatinine Estimated GFR POC Glucose 103 89 90 Random Glucose Lactic Acid Calcium Total Bilirubin AST ALT Alkaline Phosphatase C-Reactive Protein Total Protein Albumin 01/10/18 01/10/18 01/10/18 00:29 06:21 09:57 Sodium Potassium Chloride Carbon Dioxide Anion Gap BUN Creatinine Estimated GFR POC Glucose 107 102 159 H Random Glucose Lactic Acid Calcium Total Bilirubin AST ALT Alkaline Phosphatase C-Reactive Protein Total Protein Albumin Imaging: ITS Impressions Foot CT 01/08/18 17:24 CONCLUSION: 1. Large ulceration along the dorsum of the midfoot with irregularity and soft tissue defect. There is no distinct abscess or underlying bony abnormality. Foot X-Ray 01/08/18 17:51 CONCLUSION: Soft tissue swelling and apparent ulceration or gas over the dorsum of the midfoot in the region of the metatarsals with no underlying bony abnormality. There is no radiopaque foreign body. Physical Exam: PHYSICAL EXAMINATION: GENERAL: No acute distress. Awake and alert and oriented. HEENT: Head atraumatic. Extraocular movements grossly intact. Pupils reactive to light. No icterus. Oropharynx has moist mucosa. No lesions. NECK: Supple without adenopathy. LUNGS: Clear to auscultation. No murmurs, rubs or gallops. HEART: Normal S1, S2. Irregular rhythm. LUNGS: Clear to auscultation. HEART: Normal S1 and S2. No murmurs, rubs or gallops. ABDOMEN: Bowel sounds present. Soft, no tenderness appreciated. EXTREMITIES: The left foot has an ulcer at the dorsal aspect overlying the area of erythema at the dorsum of the foot. There is good granulation tissue visible and slight serous drainage. The other extremities have no clubbing, cyanosis or edema. SKIN: No rash. NEUROLOGIC: No gross focal finding. PSYCHIATRIC: Calm and cooperative. Assessment and Plan - Plan IMPRESSION: 1. Wound infection of the left foot with cellulitis with abscess formation. Status post debridement. Wound culture has staph. No evidence of osteomyelitis on CAT scan.. 2. Diabetes mellitus. RECOMMENDATIONS: 1. Continue vancomycin and monitor the culture. If it is sensitive staph consideration can be given to use of ceftriaxone outpatient. If it is MRSA, treatment with vancomycin. Antibiotics for 4 weeks. 2. Stop piperacillin/tazobactam. 3. PICC line ordered. Infusion form filled out preliminary and once cultures finalized will be completed.
--- NOTE | 2018-01-10 12:23 | P.DCO ---
Post Hospital Infusion Therapy Location of Infusion Therapy: Home Health Care IV Infusion Order Patient Weight: 108.4 kg - Diagnosis (1) Cellulitis and abscess of foot Code(s): L03.119 - Cellulitis of unspecified part of limb; L02.619 - Cutaneous abscess of unspecified foot - Administer Medication Ceftriaxone Dose: 2 grams IV Directions: q 24 hours Stop Treatment: 02/06/18 - Additional Information Venous Access: PICC Line Additional Instructions: [x] Peripheral flush and dressing changes per protocol [x] Implanted port and central gasoline engine assembler: * Implanted port: 10 ml Normal Saline followed by 5 ml Heparin 100 units/ml Heparin flush after each use and monthly to maintain. [] May leave port accessed during therapy. [] May leave peripheral site accessed for duration of therapy. [x] If patient has SOB or respiratory distress, check oxygen saturation. If less than 90% or clinical signs of respiratory distress, administer oxygen at 2 L/min. via nasal cannula and notify physician. [x] Anaphylaxis/Reaction orders: * Stop infusion. * Keep IV line open with saline flush. * Notify physician. * Monitor vital signs every 15 minutes until symptoms resolve. * Check Oxygen saturation; Oxygen at 2 L/min. via nasal cannula if less than 90% or clinical signs of respiratory distress. * Administer diphenhydramine (Benadryl) 25 mg IV STAT, (unless patient has received as pre-med). May repeat once, if necessary. * Solu-Cortef 250 mg IVP over 30-60 seconds, use 100 mg vials for each dissolution. * Epinephrine (1mg/1 ml) 0.3 mg subcutaneously or IVP now with any signs of respiratory distress. * Check with physician for new additional pre-med orders if patient is re- challenged or re-treated. [x] May remove PICC line when treatment complete, after confirming with Physician. [x] If the patient is admitted to the hospital, the ED, or transferred via [facility] , complete transfer form including medication reconciliation order sheet. Weekly Labs: BMP, CBC w/diff Additional Information: follow up with Dr. Cassie Hawkins in 2 weeks. Allergies MRI PRECAUTION Adverse Reaction (Severe, Uncoded 07/24/17 08:53) NON REVO PACEMAKER 11/20/13 LRS
[2018-01-10] MEDS ORDERED: Pharmacy Ordered Lab Info OTHER ONE (13:45)
--- NOTE | 2018-01-10 17:34 | P.PNIM ---
Subjective Interval history: Follow up diabetic left foot wound patient now has wound vac and IV abx orders in patient offers no new concerns/complaints Physical Exam Vital signs: Vital Signs 01/09/18 20:00 01/10/18 04:00 01/10/18 08:00 Temperature 97.6 F 97.2 F L 97.4 F L Pulse Rate 71 69 70 Respiratory Rate 18 18 20 Blood Pressure 129/72 118/69 134/66 Pulse Oximetry 93 L 96 94 L 01/10/18 12:00 Temperature 97.8 F Pulse Rate 69 Respiratory Rate 18 Blood Pressure 118/69 Pulse Oximetry 97 Intake & Output 01/09/18 01/10/18 01/10/18 18:59 06:59 18:59 Intake Total 615 / 615 805 / 805 50 / 50 Output Total 500 / 500 200 / 200 Balance 115 / 115 605 / 605 50 / 50 Weight 108.4 kg 108.4 kg Intake: IV 615 / 615 565 / 565 50 / 50 Zosyn 3.375 GM Premix 50 ML @ 100 / 100 50 / 50 50 / 50 100 mls/hr IV.SIG Q6H GRISELDA Rx#: [id number] Vancomycin Inj 1,500 MG In NS 515 / 515 515 / 515 Inj 500 ML @ 250 mls/hr IV.SIG Q12H GRISELDA Rx#:[id number] Oral 240 / 240 Output: Urine 500 / 500 200 / 200 Other: Mode Setting Left Foot Continuous Right Back Continuous Date of Last Bowel Movement 01/08/18 # Bowel Movements 0 0 Narrative: GENERAL: 77 year old male in no acute distress SKIN: wound vac to left foot CARDIOVASCULAR: irreg Regular rate and rhythm. RESPIRATORY: No accessory muscle use. Clear to auscultation. Breath sounds equal bilaterally. GASTROINTESTINAL: Abdomen soft, non-tender, nondistended. Hepatic and splenic margins not palpable. MUSCULOSKELETAL: Extremities without clubbing, cyanosis, or edema. No obvious deformities. NEUROLOGICAL: Awake and alert. No obvious cranial nerve deficits. Motor grossly within normal limits. Five out of 5 muscle strength in the arms and legs. Normal speech. PSYCHIATRIC: Appropriate mood and affect; insight and judgment normal. Results - Labs CBC & Chem 7: 01/09/18 06:34 01/11/18 06:27 Laboratory Results - last 24 hr 01/09/18 01/10/18 01/10/18 21:29 00:29 06:21 POC Glucose 90 107 102 Vancomycin Trough 01/10/18 01/10/18 01/10/18 09:57 15:50 16:25 POC Glucose 159 H 148 H Vancomycin Trough 18.2 H Microbiology 01/09/18 16:50 Abscess - Foot Gram Stain - Final 01/09/18 16:50 Abscess - Foot Wound Culture - Preliminary Staphylococcus aureus 01/08/18 17:26 Blood - Peripheral Aerobic Blood Culture - Preliminary No growth in 2 days 01/08/18 17:26 Blood - Peripheral Anaerobic Blood Culture - Preliminary No growth in 2 days 01/08/18 17:30 Blood - Peripheral Aerobic Blood Culture - Preliminary No growth in 2 days 01/08/18 17:30 Blood - Peripheral Anaerobic Blood Culture - Preliminary No growth in 2 days Assessment and Plan - Assessment (1) Diabetic foot infection Code(s): E11.628 - Type 2 diabetes mellitus with other skin complications; L08.9 - Local infection of the skin and subcutaneous tissue, unspecified Status: Acute Plan: Diabetic foot infection approximately 1 month ago scraped his left foot and had a small ulcer on he went to the [facility] wound care and was treated with antibiotic ointments with dressing changes however the wound on the left foot continued to worsen and he was seen sent to a [facility] [employer] Dr. Rubi, and despite podiatry treatment the wound continue to enlarge Dr. Rubi sent the hospital for IV antibiotics and CT scan of the foot. CT scan of the foot showed a large ulcer in the dorsum left midfoot with surrounding cellulitis. Patient admitted and started on IV vancomycin and IV Zosyn. podiatry applied wound vac at bedside discussed with podiatry who feels patient may need 2 - 4 weeks IV abx post discharge blood cultures no growth x 2 days and wound culture growing Staphylococcus aureus consult ID, appreciated assistance Diabetes continue home metformin 1000 mg PO BID and glimepiride 2 mg PO BID accu checks ACHS with sliding scale coverage Atrial fibrillation continue metoprolol 25 BID and Eliquis DVT prophylaxis on Eliquis Plan to DC home with HHC in AM - Attending Attestation Patient examined. Assessment and plan formulated with Chasidy Jim PA-C. I agree with the above.
--- NOTE | 2018-01-10 17:39 | P.DS ---
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 Patient approximately 1 month ago scraped his left foot and had a small ulcer on he went to the [facility] wound care and was treated with antibiotic ointments with dressing changes however the wound on the left foot continued to worsen and he was seen sent to a [facility] [employer] Dr. Yip, and despite podiatry treatment the wound continue to enlarge Dr. Porter on 1 of the patient sent to the hospital for IV antibiotics and CT scan of the foot. CT scan of the foot showed a large ulcer in the dorsum left midfoot with surrounding cellulitis. Patient will be admitted and started on IV vancomycin and IV Zosyn at this time. Further plan pending podiatry evaluation. DS: Diagnosis - Discharge Diagnosis (1) Diabetic foot infection Status: Acute DS: Summary Hospital Course: Diabetic foot infection approximately 1 month ago scraped his left foot and had a small ulcer on he went to the [facility] wound care and was treated with antibiotic ointments with dressing changes however the wound on the left foot continued to worsen and he was seen sent to a [facility] [employer] Dr. Rubi, and despite podiatry treatment the wound continue to enlarge Dr. Rubi sent the hospital for IV antibiotics and CT scan of the foot. CT scan of the foot showed a large ulcer in the dorsum left midfoot with surrounding cellulitis. Patient admitted and started on IV vancomycin and IV Zosyn. podiatry applied wound vac at bedside discussed with podiatry who feels patient may need 2 - 4 weeks IV abx post discharge blood cultures no growth x 2 days and wound culture growing Staphylococcus aureus consult ID, appreciated assistance Diabetes continue home metformin 1000 mg PO BID and glimepiride 2 mg PO BID accu checks ACHS with sliding scale coverage Atrial fibrillation continue metoprolol 25 BID and Eliquis DVT prophylaxis on Eliquis Plan to DC home with HHC in AM - Time Spent with Patient Total time spent providing and/or coordinating discharge services: Greater than 30 minutes - Quality: VTE Deep Vein Thrombosis/Pulmonary Embolism Present on Admission: No Exam Vital signs: Vital Signs 01/09/18 20:00 01/10/18 04:00 01/10/18 08:00 Temperature 97.6 F 97.2 F L 97.4 F L Pulse Rate 71 69 70 Respiratory Rate 18 18 20 Blood Pressure 129/72 118/69 134/66 Pulse Oximetry 93 L 96 94 L 01/10/18 12:00 Temperature 97.8 F Pulse Rate 69 Respiratory Rate 18 Blood Pressure 118/69 Pulse Oximetry 97 Intake & Output 01/09/18 01/10/18 01/10/18 18:59 06:59 18:59 Intake Total 615 / 615 805 / 805 50 / 50 Output Total 500 / 500 200 / 200 Balance 115 / 115 605 / 605 50 / 50 Weight 108.4 kg 108.4 kg Intake: IV 615 / 615 565 / 565 50 / 50 Zosyn 3.375 GM Premix 50 ML @ 100 / 100 50 / 50 50 / 50 100 mls/hr IV.SIG Q6H GRISELDA Rx#: [id number] Vancomycin Inj 1,500 MG In NS 515 / 515 515 / 515 Inj 500 ML @ 250 mls/hr IV.SIG Q12H GRISELDA Rx#:[id number] Oral 240 / 240 Output: Urine 500 / 500 200 / 200 Other: Mode Setting Left Foot Continuous Right Back Continuous Date of Last Bowel Movement 01/08/18 # Bowel Movements 0 0 Narrative: GENERAL: 77 year old male in no acute distress SKIN: wound vac to left foot CARDIOVASCULAR: irreg Regular rate and rhythm. RESPIRATORY: No accessory muscle use. Clear to auscultation. Breath sounds equal bilaterally. GASTROINTESTINAL: Abdomen soft, non-tender, nondistended. Hepatic and splenic margins not palpable. MUSCULOSKELETAL: Extremities without clubbing, cyanosis, or edema. No obvious deformities. NEUROLOGICAL: Awake and alert. No obvious cranial nerve deficits. Motor grossly within normal limits. Five out of 5 muscle strength in the arms and legs. Normal speech. PSYCHIATRIC: Appropriate mood and affect; insight and judgment normal. Results Procedures completed during hospitalization: bedside debridement and wound vac placement 01/09/18 Labs on day of discharge: Labs from last 24 hours 01/10/18 01/10/18 01/10/18 16:25 15:50 09:57 POC Glucose 148 H 159 H Vancomycin Trough 18.2 H 01/10/18 01/10/18 01/09/18 06:21 00:29 21:29 POC Glucose 102 107 90 Vancomycin Trough Preliminary micro results at discharge 01/09/18 16:50 Wound Culture - Preliminary Abscess - Foot Staphylococcus aureus 01/08/18 17:26 Aerobic Blood Culture - Preliminary Blood - Peripheral No growth in 2 days Anaerobic Blood Culture - Preliminary No growth in 2 days 01/08/18 17:30 Aerobic Blood Culture - Preliminary Blood - Peripheral No growth in 2 days Anaerobic Blood Culture - Preliminary No growth in 2 days - Impressions ITS Impressions Foot CT 01/08/18 17:24 CONCLUSION: 1. Large ulceration along the dorsum of the midfoot with irregularity and soft tissue defect. There is no distinct abscess or underlying bony abnormality. Foot X-Ray 01/08/18 17:51 CONCLUSION: Soft tissue swelling and apparent ulceration or gas over the dorsum of the midfoot in the region of the metatarsals with no underlying bony abnormality. There is no radiopaque foreign body. <Magdy Mauricio - Last Filed: 01/15/18 12:14> Date of admission: 01/08/18 18:22 Primary care physician: Samuel St MD DS: Diagnosis - Discharge Diagnosis (1) Diabetic foot infection Status: Acute DS: Summary Hospital Course: Patient examined. Assessment and plan formulated with Chasidy Jim PA-C. I agree with the above. - Time Spent with Patient Total time spent providing and/or coordinating discharge services: Results - Impressions ITS Impressions Foot CT 01/08/18 17:24 CONCLUSION: 1. Large ulceration along the dorsum of the midfoot with irregularity and soft tissue defect. There is no distinct abscess or underlying bony abnormality. Foot X-Ray 01/08/18 17:51 CONCLUSION: Soft tissue swelling and apparent ulceration or gas over the dorsum of the midfoot in the region of the metatarsals with no underlying bony abnormality. There is no radiopaque foreign body. Discharge Plan - Discharge Order Discharge Orders: Discharge Order (Routine); Ordered 01/11/18 Ordered By: Chasidy Jim - Discharge Details Anticipated Discharge Date: 01/11/18 - Physicians Team Primary Care Provider: Samuel St Attending Provider: Magdy Mauricio Other Providers: Salma Hdz DPM ; Elmer Ventura MD ; [facility]
--- NOTE | 2018-01-10 17:41 | P.DCO ---
- Home Health Nursing Order: Medical education, Signs/symptoms of disease process, Diabetic education , Medication education-adverse effect, Wound care and dressing changes, Nursing assessment with vital signs Instructions: wound care/wound vac per podiatry IV abx per ID - Certification I have seen patient Wilman Cabrera SR on 01/10/18. My clinical findings support the need for the requested home health care services because: Limited mobility due to disease progression, Deconditioned with increased weakness, Limited ability to care for self, High risk of falls I certify that my clinical findings support that this patient is homebound because: Unsteady gait/balance
[2018-01-10] MEDS: Gabapentin 300 MG Capsule PO SCH (18:12)
[2018-01-10] MEDS: Finasteride 5 MG Tablet PO SCH (21:27)
[2018-01-11] MEDS: Vancomycin Inj 1,500 MG in Sodium Chlor 0.9% Inj 500 ML IV.SIG SCH ×2 (01:54→15:04)
[2018-01-11] MEDS: Insulin NovoLOG Aspart Correctional Sugar Inj SQ SCH ×3 (05:30→15:03)
[2018-01-11] MEDS: Metoprolol Tartrate 25 MG Tablet PO SCH (08:04)
[2018-01-11] MEDS: Senna/Docusate Sodium 8.6/50 MG Tablet PO SCH (08:04)
[2018-01-11] MEDS: Furosemide 20 MG Tablet PO SCH (08:12)
[2018-01-11] MEDS: Glimepiride 2 MG Tablet PO SCH (15:06)
--- NOTE | 2018-01-14 09:21 | P.PNWCN ---
Wound Care Nurse Consult Additional information: Late entry from 01/11/2018: Patient not seen spoke with BENJIE johnson, Morteza Aguero RNmanager medicaid, kristina will not have wound VAC fro home use applied here. He is going home with moist to dry dressing and home healthcare will apply wound VAC.
--- NOTE | 2018-01-29 08:49 | MR ---
cc: Salma Hdz DPM DATE: 01/09/2018 SURGEON: Salma Hdz DPM COACH MECHANIC: None. DIAGNOSIS: Left foot full-thickness ulceration. PROCEDURE PERFORMED: Left foot bedside debridement. ANESTHESIA: None. DESCRIPTION OF PROCEDURE: The patient's foot was cleansed with sterile saline and a #15 scalpel blade was used to debride and excise any fibrotic and nongranular tissue within the wound bed. The wound bed measured approximately 5 x 5 x 0.25 cm. There were some exposed tendons, which were left intact. Following a debridement, the area was again cleansed and a KCI wound VAC was applied. Adaptic was applied over the tendons and a KCI wound VAC was applied directly over that, set to 125 mmHg continuous flow. The area was then dressed with adequate amount of padding. The patient tolerated the procedure well. No anesthesia or tourniquet were used. We will be followed accordingly while in-house. BRANDON Woodruff/rs , 08:40 AM , 08:45 AM
== END 2018-01-11 15:37 | disposition home health service (06) ==
LOC: NEPC 16:35 → NEDA 18:22 → N04 21:06
PROVIDERS: ADMIT Hospitalist; ATTEND Hospitalist